=== PATIENT | male | born 1975 | race Caucasian/White ===

== ENCOUNTER 2024-09-23 20:28 | Emergency (ER) | payer SELFPAY ==
[2024-09-23 20:32] VITALS: BP 152/82; PULSE 68; RESP 17; TEMP 36.1; O2SAT 98
--- NOTE | 2024-09-23 23:32 | PC.NURSE ---
eye kit at bedside
[2024-09-23 23:34] VITALS: BP 123/84; O2SAT 96
[2024-09-23 23:48] VITALS: BP 123/84; PULSE 60; RESP 16; TEMP 36.6; O2SAT 95
[2024-09-24] VITALS (7 sets, daily range): BP systolic 117–118; BP diastolic 76; PULSE 76; RESP 16; TEMP 36.4; O2SAT 95–98
--- OUTSIDE RECORDS SUMMARY | 2024-09-24 00:58 | XMS_ITS | Encounter Summary ---
Author Name [facility] Organization [facility] [place] Address [address] [place] [address] Care Team Providers Care Elevator Constructor Hydraulic Name Role Phone WALTER EMILIO Primary Care Provider Unavailabl e SERGO VIRK Primary Care Provider Unavailabl e Insurance Providers: All historical and current Section Date Range: From patient's date of to the date document was created. This section includes the names of all active insurance providers for the patient. Insurance Provider Type of Coverage Plan Name Start of Policy Coverage End of Policy Coverage Group Number Member ID Insurance Provider's Telephone Number Policy [place]'s Name Patient's Relationship to Policy [place] [employer] RE DODA WNR Jan 14, 2024 DODA [id number] Julianna JAVED [facility] 2024 [facility] RETIR ED Jun 09, 2024 PRIME RETIRED [id number] [phone] Julianna JAVED [facility]IENT [facility] 2024 PRIME WNR Jun 09, 2024 PRIME [id number] [phone] Julianna JAVED PATIENT Selected Encounter This section includes the information on record at [place] for the Encounter. Date/Time Encounter Type Encounter Description Reason Provider Source Aug 04, 2024 07:30 AM OFFICE O/P EST LOW 20 MIN PODIATRY ICD-10-CM L60.3 Nail dystrophy JOSIAH GANNON IHKori Encounter Template Text not used by [place] Assessments - Encounter Diagnoses This section includes the primary and secondary diagnoses documented for the Encounter. Date/Time Primary/Secondary Diagnosis Diagnosis Name Provider Source Aug 04, 2024 09:11 PM PRIMARY Nail dystrophy JOSIAH GANNON [facility] Aug 04, 2024 09:11 PM SECONDARY Hallux rigidus, right foot JAGDEEPJOSIAH L [facility] Aug 04, 2024 09:11 PM SECONDARY Other acquired deformities of unspecified foot JAGDEEPJOSIAH L [facility] Aug 04, 2024 09:11 PM SECONDARY [facility] Plan of Treatment: Future Appointments (+ 6 months) and Future Tests (+/- 45 days) The Plan of Treatment section includes future care activities for the patient from all [place] treatmentfacilities. This section includes future appointments and future orders which are active, pending or scheduled. Future Appointments This section includes appointments that were scheduled to occur 6 months from the date of the Encounter, up to a maximum of 20 appointments. The data comes from all [place] treatment facilities. Appointment Date/Time Appointment Type Appointme nt Facility Name Sep 10, 2024 07:30 AM AMBULATORY [facility] NONE [facility] Sep 13, 2024 02:00 PM AMBULATORY - NONE [facility] Sep 17, 2024 07:30 AM AMBULATORY - NONE [facility] Sep 20, 2024 02:00 PM AMBULATORY - NONE [facility] Sep 24, 2024 07:30 AM [facility] Sep 27, 2024 02:00 PM [facility]ULAT[facility] Sep 27, 2024 03:00 PM AMBULATORY - SURGERY [facility] Oct 01, 2024 07:30 AM AM[facility]ULAT[facility] Oct 04, 2024 02:00 PM [facility]ULAT[facility] Nov 19, 2024 10:00 AM AM[facility]UL[facility]ORY - [facility] Dec 08, 2024 09:00 AM AMBULATORY - MEDICINE [facility] Advance Directives: All historical and current Section Date Range: From patient's date of to the date document was created. This section includes ALL of a patient's completed or amended [place] Advance and Rescinded Directives. The entries below indicate that a directive exists for the patient, but an actual copy is not included with this document. The data comes from all [place] facilities. Date Advance Directives Provider Source Dec 28, 2021 ADVANCE DIRECTIVE DISCUSSION PHYLLIS GUPTA [facility] Encounter Notes: All associated encounter notes This section contains the clinical notes associated to the Encounter. Date/Time Encounter Note(s) Provider Source Aug 04, 2024 05:40 AM PODIATRY NOTE: LOCAL TITLE: PODIATRY NOTE STANDARD TITLE: PODIATRY NOTE DATE OF NOTE: AUG 04, 2024@05:40 ENTRY DATE: AUG 04, 2024@05:40:56 AUTHOR: JOSIAH GANNON COSIGNER: URGENCY: STATUS: COMPLETED Last clinic visit on November 28, 2023. SUBJECTIVE: This 49 year old noninsulin dependent male patient presents for followup for complaints of sharp and aching pain to the right foot. localized to the plantar heel of the foot. The pt received the orthosis from [employer] as follows: Purchase Order Number: [id number] First Line Item: CUSTOM FUNCTIONAL INSERTS [id number] EA Vendor Name: [employer] Deliver To Location: The pt is pleased with the orthosis, The pt uses steel toe shoes at work. In addition the patient hit the hallux right to cause the toe nail to come off. Currently not an issue. The pt is not requesting footwear and orthosis this clinic visit. Pt last blood sugar was 80 mg/dl serum in November 2023 Pt states no numbness, tingling and/or burning sensation to the feet. Pt denies rest pain or claudication. Pt denies any recent injuries to the feet. Pt denies any history of ulceration or slow healing wounds. Pt relates no other foot complaints at this time. SOCIAL HISTORY: Pt denies smoking. Patient drinks alcohol: OCCASIONAL Patient uses recreational drugs: denies Family history of diabetes: denies PMH: Patient has answered NKA DS - Disabilities Eligibility: SERVICE CONNECTED 50% to 100% VERIFIED Total S/C %: 100 TINNITUS 10% S/C LIMITED MOTION OF ARM 20% S/C LIMITATION OF MOTION, INDEX OR LONG FINGER 10% S/C ANXIETY DISORDER 30% S/C LIMITED FLEXION OF KNEE 0% S/C 2ND DEGREE SQUIRES 0% S/C LIMITATION ON MOTION, RING OR LITTLE FINGER 0% S/C LIMITATION ON MOTION, RING OR LITTLE FINGER 0% S/C PARALYSIS OF MEDIAN NERVE 20% S/C FLAT FOOT CONDITION 50% S/C HIATAL HERNIA 10% S/C LUMBOSACRAL OR CERVICAL STRAIN 30% S/C LIMITATION OF MOTION, INDEX OR LONG FINGER 10% S/C LIMITATION ON MOTION, RING OR LITTLE FINGER 0% S/C LIMITED FLEXION OF KNEE 0% S/C SUPERFICIAL SCARS 10% S/C LIMITED MOTION OF ANKLE 10% S/C 2ND DEGREE SQUIRES 0% S/C LIMITATION ON MOTION, RING OR LITTLE FINGER 0% S/C LIMITED EXTENSION OF KNEE 10% S/C LIMITED EXTENSION OF KNEE 10% S/C NEUROGENIC BLADDER 40% S/C FOOT CONDITION 10% S/C LIMITATION OF MOTION, THUMB 10% S/C 2ND DEGREE SQUIRES 0% S/C LIMITATION OF MOTION, INDEX OR LONG FINGER 10% S/C 2ND DEGREE SQUIRES 0% S/C HEMORRHOIDS 0% S/C LIMITATION OF MOTION, INDEX OR LONG FINGER 10% S/C PARALYSIS OF MEDIAN NERVE 30% S/C SLEEP APNEA SYNDROMES 50% S/C TRAUMATIC BRAIN DISEASE 10% S/C ALLERGIC OR VASOMOTOR RHINITIS 0% S/C LIMITATION OF MOTION, THUMB 10% S/C LIMITED MOTION OF ARM 20% S/C LUMBOSACRAL OR CERVICAL STRAIN 20% S/C LIMITED MOTION OF ANKLE 10% S/C SINUSITIS,MAXILLARY,CHRONIC 0% S/C 68 in [172.7 cm] (11/19/2023 08:19) 189 lb [85.73 kg] (11/19/2023 08:19) 1) Hyperlipidemia 2) Obstructive sleep apnea 3) Anxiety 4) Gastroesophageal reflux disease 5) History of traumatic brain injury 6) Allergic rhinitis 7) Low back pain 8) Pes planus 9) Plantar fasciitis 10) Tinnitus 11) Exposure to potentially hazardous substance ([facility] [id number]) Active Outpatient Medications (including Supplies): Active Outpatient Medications Status 1) LORATADINE 10MG TAB TAKE ONE TABLET BY MOUTH ONCE A ACTIVE DAY FOR ALLERGIC RHINITIS ON EMPTY STOMACH 2) PANTOPRAZOLE NA 40MG EC TAB TAKE ONE TABLET BY MOUTH ACTIVE EVERY MORNING BEFORE A MEAL FOR GASTROESOPHAGEAL REFLUX DISEASE TAKE 30 MINUTES BEFORE MEAL(S) Objective: Pt presents ambulating in tennis sneakers every day footwear without assistance and oriented x 3. Last clinic visit on November 28, 2023 with few changes to the following objective findings from the last clinic visit. Vasc: DP and PT pulses are palpable 1/4 b/l. CFT < 4 seconds b/l. Hair growth is present on the digits, b/l feet. There is absent ankle edema present, b/l extremities. Neuro: Protective sensation is normal at all sites tested with Driver Yvonne 5.07 monofilament to both feet. Negative tinel to the posterior tibial nerve, b/l feet. Derm: neg varicosities dorsum of foot b/l. Nails are trimmed by patient. right hallux nail No evidence of infection, i.e. no erythema, no drainage, no edema, no cellulitis, no odor. Web spaces are clean and dry. There are no open lesions. No evidence of ulcerations or breaks in the skin. No evidence of infection, i.e., no erythema, no drainage, no edema, no cellulitis, no odor. Inflamed keratosis: 0 , right foot; and 0 , left foot. Ortho: 1st MPJ ROM diminished < 30 degrees, right foot There is pain and +++ crepitus noted to the joint to the right foot. Inversion and eversion ROM to the foot is within normal limits without pain or crepitus. Ankle joint ROM is diminished < 3 degrees, b/l. There is no pain with deep massage to anatomical structures to the left foot or the right foot. Manual muscle testing in all biomechanical planes, i.e. supination, pronation, dorsiflexion, plantarflexion, abduction and adduction, are normal, i.e. 5/5, b/l feet. pes cavus, b/l feet hallux limitus, right foot ++++++++++++++++++++++++++ ankle equinus, b/l feet Mild hammer toes: 2-5, b/l feet Stance/gait: with pronation ASSESSMENT: right foot pain right plantar fasciitis, right foot pes cavus, b/l feet hallux limitus, right foot ++++++++++++++++++++++++++ ankle equinus, b/l feet Mild hammer toes: 2-5, b/l feet Stance/gait: with pronation nail dystrophy, right hallux PLAN: Exam FOOT RISK SCORE: low foot risk per the A directive 1122 x-rays of the left foot, right foot, taken on November 21, 2023 radiologist comments: refer to the film reports fof details Discussed in detail -- footwear and afunction orthosis; If the right hallux limitus is painful and the pt chooses to use a cam boot, the pt was encouraged to call this doctor and one will be ordered. Used foot/ankle models to assist in explanation. The pt agreed with the plan and voiced understanding with the discussion and plan. Discussed diabetic foot care in general. Pt relates verbal understanding. Pt encouraged to check feet daily. Pt given clinic phone numbers. PROSTHETICS: none this visit Pt understands that pt can contact the clinic if there are concerns or questions and the pt needs to see Podiatry sooner, through the HAS pensionholder information clerk/office. Pt visits PCP annually. Pt to call the clinic in 2 months with verbal update. Patient instructed to go to [facility], or contact their PCP with new pedal complaints, and if there are concerns or questions. Example includes infection. The pt voiced understanding of infection such as red, hot, swollen and streaking foot that may be accompanied with or without f/c/n/v/d/m/chest pain/sob/leg pain. /rita/ Kamilah RIZOP.Charles. Staff Physician - Podiatry Signed: 08/08/2024 19:22 JOSIAH GANNON [facility]
--- OUTSIDE RECORDS SUMMARY | 2024-09-24 00:58 | XMS_ITS | Encounter Summary ---
Author Name [facility] ([place]) Organization [facility] [place]) Address [address] [place] [address] Care Team Providers Care Hr Recruiter Name Role Phone WALTER EMILIO Primary Care Provider Unavailjanell e SERGO VIRK Primary Care Provider Unavailabl nirmala Insurance Providers: All historical and current Section [...] RE DODA WNR Jan 14, 2024 DODA [id number] [phone] Julianna JAVED [facility]IENT [facility] 2024 PRIME RETIR ED Jun 09, 2024 PRIME RETIRED [id number] [phone] Julianna JAVED [facility]IENT [facility] 2024 PRIME WNR Jun 09, 2024 PRIME [id number] [phone] Julianna JAVED PATIENT Selected Encounter This section includes the information on record at [place] for the Encounter. Date/Time Encounter Type Encounter Description Reason Provider Source Jul 05, 2024 09:00 AM MANUAL THERAPY 1/> [employer] ICD-10-CM M54.50 Low back pain, unspecified MARCELLA LIND [facility] Encounter Template Text not used by [place] Assessments - Encounter Diagnoses This section includes the primary and secondary diagnoses documented for the Encounter. Date/Time Primary/Secondary Diagnosis Diagnosis Name Provider Source Jul 05, 2024 09:32 AM PRIMARY Low back pain, unspecified TERRANCE LIND Miguelina [facility] Jul 05, 2024 09:32 AM SECONDARY Cervicalgia TERRANCE LIND [facility] Jul 05, 2024 09:32 AM SECONDARY Myalgia, other site TERRANCE LIND [facility] Plan of Treatment: Future Appointments (+ 6 months) and Future Tests (+/- 45 days) The Plan of Treatment section includes future care activities for the patient [facility] [place] [facility] This section includes future appointments and future orders which are active, pending or scheduled. Future Appointments This section includes appointments that were scheduled to occur 6 months from the date of the Encounter, up to a maximum of 20 appointments. The data comes from all [place] treatment facilities. Appointment Date/Time Appointment Type Appointme nt Facility Name Jul 12, 2024 06:30 PM AMBULATORY [facility] NONE [facility] Jul 16, 2024 07:30 AM AMBULATORY [facility] Jul 23, 2024 07:30 AM AMBULATORY [facility] N[facility] Jul 30, 2024 07:30 AM AMBULATORY [facility] Aug 04, 2024 07:30 AM AMBULATORY - SURGERY [facility] Sep 10, 2024 07:30 AM AMBULATORY [facility] Sep 13, 2024 02:00 PM AMBULATORY - NONE [facility] Sep 17, 2024 07:30 AM AMBULATORY [facility]ONE [facility] Sep 20, 2024 02:00 PM AMBULATORY - NONE [facility] Sep 24, 2024 07:30 AM AM[facility]ULATORY [facility] Sep 27, 2024 02:00 PM AM[facility]ULATORY [facility] Sep 27, 2024 03:00 PM AMBULATORY - SURGERY [facility] Oct 01, 2024 07:30 AM AMBULATORY - NONE [facility] Oct 04, 2024 02:00 PM AMBULATORY - NONE [facility] Nov 19, 2024 10:00 AM AMBULATORY - MEDICINE [facility] Dec 08, 2024 09:00 AM AMBULATORY - MEDICINE [facility] Social History: Smoking Status (Most current) and Tobacco Use (All prior to encounter date) This section includes the most current, and the historical, smoking and tobacco- related health factors from the [place] facility where the Encounter took place. Current Smoking Status This section includes the most current smoking, or tobacco-related health factor, from the [place] facility where the Encounter took place. Date/Time Current Smoking Status Comment Facil ity Nov 19, 2023 08:30 AM VA-TOBACCO NEVER USED [facility] Advance Directives: All historical and current Section Date Range: From patient's date of to the date document was created. This section includes ALL of a patient's completed or amended [place] Advance and Rescinded Directives. The entries below indicate that a directive exists for the patient, but an actual copy is not included with this document. The data comes from all [place] facilities. Date Advance Directives Provider Source Dec 28, 2021 ADVANCE DIRECTIVE DISCUSSION PHYLLIS GUPTA [facility] Encounter Notes: All associated encounter notes This section contains the clinical notes associated to the Encounter. Date/Time Encounter Note(s) Provider Source Jul 05, 2024 08:21 AM CHIROPRACTIC NOTE: LOCAL TITLE: CHIROPRACTIC [facility] STANDARD TITLE: CHIROPRACTIC NOTE DATE OF NOTE: JUL 05, 2024@08:21 ENTRY DATE: JUL 05, 2024@08:21:18 AUTHOR: TERRANCE LIND COSIGNER: URGENCY: STATUS: COMPLETED SUBJECTIVE: Bong presents today for a follow up visit of neck and back pain. he notes over the past week experiencing discomfort along CT junction, has been trying to be more mindful of posture, stretching and heat which feels good but does not make pain go away. He denies UE radicular symptoms. he notes lately low back has been doing pretty good. He has been working with [employer] which has been going pretty good so far. Denies any recent slips falls or injuries. Today rates pain complaint as 2/10. Received TENS unit, has used on occasion. GOALS: Improve mobility, decrease pain when transitioning from flexion to neutral spine. REFERRAL DATE: 11/19/2023 EXAM DATE(S): 12/26/23 09:00 INITIAL TREATMENT DATE: 12/26/23 09:00 TYPE OF CARE: active DISCHARGE DATE: 07/05/2024 ALERTS: EXAMINATION APPEARANCE, MOOD & ORIENTATION The patient is a 49 year old WHITE NOT OR MALE, who is alert and oriented to person, place, and time. The patient is in no apparent distress and is well developed and well nourished. Patient walks with no difficulty. OBJECTIVE/PALPATION: Taut and tender cervical and thoracolumbar paraspinal muscles RESTRICTIONS: Cervical, thoracic, lumbar and SIJ ASSESSMENT: Patient is a pleasant 49-year-old male with nonspecific mechanical neck and back pain likely with postural component. Patient likely to benefit with inclusion of conservative management in addition to self-care/self-management strategies. On examination no evidence of neurological compromise, deep tendon reflexes dermatomes and myotomes intact bilaterally without deficit. PLAN: Plan of care will consist of 4-6 visits consisting of chiropractic manipulation with an incremental increase in home exercise depending on the patients response. The patient agrees to this plan. Treatment consisted of prone manipulation CT junction, supine manipulation thoracic spine, manipulation, side-lying manipulation lumbar spine and SIJ. flexion distraction. Manual therapy consisting of cross friction massage of the rhomboids, upper trapezius, cervical/thoracolumbar paraspinals, quadratus lumborum and levator scapula muscles. Table assisted pin and stretch thoracolumbar paraspinals. Manual therapy 9 minutes. The patient reported feeling much better following their treatment. Treatment rendered without incident. HOME CARE: Kneeling thoracic mobility 5 reps 3-4 times daily, cervical retractions 5 reps 3-4 times daily RTC:Discharged this date. Patient was informed that may to return to clinic with a consult in 6 months if desired or symptoms return. /rita/ TERRANCE LIND [facility] Chiropractic Physician Signed: 07/05/2024 09:32 TERRANCE LIND [facility]
--- OUTSIDE RECORDS SUMMARY | 2024-09-24 00:58 | XMS_ITS | Encounter Summary ---
Author Name [facility] Organization [facility] Address [address] [place] [address] Care Team Providers Care Automatic Seamer Name Role Phone WALTER EMILIO Primary Care [...] RE DODA WNR Jan 14, 2024 DODA [id number] Julianna JAVED PATIENT [facility] 2024 [facility] RETIR ED Jun 09, 2024 [facility] RETIRED [id number] [phone] Julianna JAVED PATIENT [facility] 2024 [facility] WNR Jun 09, 2024 PRIME [id number] [phone] Julianna JAVED PATIENT Selected Encounter This section includes the information on record at [place] for the Encounter. 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 Date/Time Primary/Secondary Diagnosis Diagnosis Name Provider Source Dec 26, 2023 11:17 AM PRIMARY Low back pain, unspecified RAUL LIND [facility] Dec 26, 2023 11:17 AM SECONDARY Cervicalgia RAUL LIND [facility] Dec 26, 2023 11:17 AM SECONDARY Myalgia, other site RAUL LIND [facility] Plan of Treatment: Future Appointments (+ 6 months) and Future Tests (+/- 45 days) The Plan of Treatment section includes future care activities for the patient from all [place] treatmentfacilities. This section includes future appointments and future orders which are active, pending or scheduled. Future Appointments This section includes appointments that were scheduled to occur 6 months from the date of the Encounter, up to a maximum of 20 appointments. The data comes from all [place] treatment facilities. Appointment Date/Time Appointment Type Appointme nt Facility Name Dec 29, 2023 04:00 PM AM[facility]ULATORY [facility] NONE [facility] Jan 12, 2024 03:00 PM AMBULATORY [facility] NONE [facility] Jan 20, 2024 11:20 AM AMBULATORY - NONE [facility] Feb 19, 2024 11:20 AM AMBULATORY - NONE [facility] Mar 01, 2024 10:30 AM AMBULATORY - MED[facility] Mar 11, 2024 11:00 AM AMBULATORY - NONE [facility] Apr 13, 2024 11:20 AM AMBULATORY - NONE [facility] May 11, 2024 11:40 AM AMBULATORY - N[facility] May 25, 2024 08:00 AM AMBULATORY - NONE [facility] Jun 03, 2024 01:30 PM AM[facility]ULATORY [facility] Jun 14, 2024 06:30 PM [facility]AT[facility] Jun 21, 2024 06:30 PM [facility]ATORY [facility] Advance Directives: All historical and current Section Date Range: From patient's date of to the date document was created. This section includes ALL of a patient's completed or amended [place] Advance and Rescinded Directives. The entries below indicate that a directive exists for the patient, but an actual copy is not included with this document. The data comes from all [place] facilities. Date Advance Directives Provider Source Dec 28, 2021 ADVANCE DIRECTIVE DISCUSSION ALONSOPHYLLIS Sheikh [facility] Encounter Notes: All associated encounter notes This section contains the clinical notes associated to the Encounter. Date/Time Encounter Note(s) Provider Source Dec 26, 2023 07:45 AM CONSULT: LOCAL TITLE: CHIROPRACTIC [facility] CONSULT [facility] STANDARD TITLE: CONSULT DATE OF NOTE: DEC 26, 2023@07:45 ENTRY DATE: DEC 26, 2023@07:45:32 AUTHOR: TERRANCE LIND COSIGNER: URGENCY: STATUS: COMPLETED REQUESTING PROVIDER: SERGO VIRK Thank you for your referral, as you know this is a 48 year old WHITE NOT OR MALE presenting to the Chiropractic clinic on 12/26/23 09:00 with a chief complaint of low back pain, during appointment patient also notes history of neck pain. COMPLAINT: Patient presents today for an evaluation of low back pain. Onset of back pain starting about 4 years ago, denies trauma, relates onset to age. He notes back pain comes and goes, depending on what he is doing. He constantly feel like he needs to extend his back. he notes bending forward is aggravating also aggravated by coming up from flexed position. He denies radicular symptoms. He describes as feeling like he gets locked into a flexed position, and will need to lay down on the floor, will push on his back. He notes taking ibuprofen about 4 days/wk about 800 mg/daily. Unable to identify time of day. Today rates back pain as a 2/10, which is typical, when flared up can get to 4/10. Has been getting massages for past 4-5 yrs. predominately for upper back, also does aided stretches during massages, about once/month. He describes upper back pain along CT region, starting about 4 years ago, insidious onset. he notes about 4 yrs. go returning from [place] and notes having to wear body armor for extended periods of time. He notes difficulty turning head, more difficult turning to left, with pain along L upper traps. 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 He reports previous nerve test and completed PT. He describes neck complaint as feeling stiff, today rates complaint as 1-2/10. He notes history of plantar fasciitis predominately in the right heel. He notes recently completed physical therapy. 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 Riding mountain bike, has not done as much lately, will occasionally use trails. 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: - TOBACCO: Previous, quit 1999 ETOH: Occasionally 1-2 drinks/wk ILLICITS: Denies Service Connected: Yes (100%) DS - Disabilities Eligibility: SERVICE CONNECTED 50% to 100% VERIFIED Total S/C %: 100 LIMITATION ON MOTION, RING OR LITTLE FINGER 0% S/C SINUSITIS,MAXILLARY,CHRON IC 0% S/C 2ND DEGREE SQUIRES 0% S/C LIMITATION ON MOTION, RING OR LITTLE FINGER 0% S/C HIATAL HERNIA 10% S/C PARALYSIS OF MEDIAN NERVE 20% S/C TINNITUS 10% S/C FLAT FOOT CONDITION 50% S/C LIMITED MOTION OF ARM 20% S/C ANXIETY DISORDER 30% S/C LIMITATION OF MOTION, INDEX OR LONG FINGER 10% S/C LIMITED MOTION OF ANKLE 10% S/C SUPERFICIAL SCARS 10% S/C LIMITATION ON MOTION, RING OR LITTLE FINGER 0% S/C 2ND DEGREE SQUIRES 0% S/C LIMITATION OF MOTION, INDEX OR LONG FINGER 10% S/C LUMBOSACRAL OR CERVICAL STRAIN 30% S/C LIMITED FLEXION OF KNEE 0% S/C LIMITATION ON MOTION, RING OR LITTLE FINGER 0% S/C LIMITATION OF MOTION, THUMB 10% S/C ALLERGIC OR VASOMOTOR RHINITIS 0% S/C LIMITATION OF MOTION, INDEX OR LONG FINGER 10% S/C LIMITATION OF MOTION, INDEX OR LONG FINGER 10% S/C 2ND DEGREE SQUIRES 0% S/C 2ND DEGREE SQUIRES 0% S/C LIMITED EXTENSION OF KNEE 10% S/C HEMORRHOIDS 0% S/C LIMITED EXTENSION OF KNEE 10% S/C FOOT CONDITION 10% S/C NEUROGENIC BLADDER 40% S/C LIMITATION OF MOTION, THUMB 10% S/C LIMITED FLEXION OF KNEE 0% S/C LUMBOSACRAL OR CERVICAL STRAIN 20% S/C LIMITED MOTION OF ARM 20% S/C PARALYSIS OF MEDIAN NERVE 30% S/C LIMITED MOTION OF ANKLE 10% S/C TRAUMATIC BRAIN DISEASE 10% S/C SLEEP APNEA SYNDROMES 50% S/C CAN score: 0 GOALS: Improve mobility, decrease pain when transitioning from flexion to neutral spine. REFERRAL DATE: 11/19/2023 EXAM DATE(S): 12/26/23 09:00 INITIAL TREATMENT DATE: 12/26/23 09:00 TYPE OF CARE: active DISCHARGE DATE: ALERTS: EXAMINATION APPEARANCE, MOOD & ORIENTATION The patient is a 48 year old WHITE NOT OR MALE, who is alert and oriented to person, place, and time. The patient is in no apparent distress and is well developed and well nourished. Patient walks with no difficulty OBJECTIVE/PALPATION: Taut and tender rhomboids, upper traps and levator scapula. Taut and tender lumbar paraspinals and quadratus lumborum. RESTRICTIONS: CT junction, thoracic, lumbar, SIJ CERVICAL RANGE OF MOTION: Ranges of motion in flexion, extension, lateral flexion, and rotation were all in normal range without pain except: Mild restriction with bilateral rotation, patient repositioned in better posture notes significant improvement in cervical range of motion. THORACOLUMBAR RANGE OF MOTION : Ranges of motion in flexion, extension, lateral flexion, and rotation were all in normal range without pain except: Flexion with hands to distal marquis with pulling in low back and hamstrings, extension felt like a nice stretch, all other ranges of motion patient endorses stiffness. SENSORY Light touch: Bilateral upper/lower extremities intact without deficit. MOTOR (Graded 0-5) All 5/5 bilaterally except : L R Deltoids (C5) Biceps (C6) Wrist Extension (C6) Triceps (C7) Finger Extension (C7) Finger Flexion (C8) Finger Adduction (T1) Hip Flexion - Iliopsoas (L1,2,3) Leg Extension - Quadriceps (L2,3,4) Hip Adduction (L2,3,4) Tibialis Anterior (L4) Extensor Hallucis Longus (L5) Peroneus Longus and Brevis (S1) REFLEXES - Deep Tendon All 2+ bilaterally except (Graded 0-4) L R Biceps (C5) Triceps (C7) Brachioradialis (C6) Patellar (L4) Achilles (S1) ORTHOPEDIC All tests negative except as indicated: L R Location of Pain Foraminal Compression Max Foraminal Compression Tristian's Compression Distraction Comments Gait Toe Walk (S1,S2) Heel Walk (L4,L5) Ash's Sign Comments: Able to stand on their heels and on their toes without difficulty L R Location of Pain Kemps Standing Bechterew's * * Hamstring stretch Tripod Sign SLR 60 60 hamstring stretch Justin VALENTIN * R Lateral hip Suni's Hibb's Nachlas Mary Kate's [place]'s Additional Tests: Additional Comments: DIAGNOSTIC IMAGING == == ASSESSMENT: Patient is a pleasant 48-year-old male with nonspecific mechanical neck and back pain likely with postural component. Patient likely to benefit with inclusion of conservative management in addition to self-care/self-management strategies. On examination no evidence of neurological compromise, deep tendon reflexes dermatomes and myotomes intact bilaterally without deficit. PLAN: The patient was given a review of findings following the exam. The benefits, risks and alternatives to animal care provider were discussed with the patient, along with an opportunity to ask questions. Patient then gave an informed consent to treatment. Plan of care will consist of 4-6 visits consisting of chiropractic manipulation with an incremental increase in home exercise depending on the patients response. The patient agrees to this plan. Treatment consisted of flexion distraction lumbar spine, prone manipulation CT junction, supine manipulation thoracic spine, side-lying manipulation lumbar and SIJ. Manual therapy consisting of table assisted pin and stretch thoracolumbar paraspinals and quadratus lumborum. Cross friction massage rhomboids, upper traps and levator scapula. Prone vibratory massage thoracolumbar paraspinals, rhomboids. Manual therapy 10 minutes. Patient was instructed in cervical retractions, kneeling thoracic mobility Therapeutic exercise 5 minutes. The patient reported feeling much better following their treatment. Treatment rendered without incident. Patient reports reduction in stiffness, also describes feeling like he is able to sit up taller. Outpatient consultation consisting of chart review, history, examination, education and documentation 43 minutes. HOME CARE: Kneeling thoracic mobility 5 reps 3-4 times daily, cervical retractions 5 reps 3-4 times daily RTC: 3 to 4 weeks at [place] /rita/ TERRANCE LIND [facility] Chiropractic Physician Signed: 12/26/2023 11:19 TERRANCE LIND [facility]
--- OUTSIDE RECORDS SUMMARY | 2024-09-24 00:58 | XMS_ITS | Encounter Summary ---
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 Date/Time Encounter Type Encounter Description Reason Provider Source Dec 09, 2023 10:15 AM OFFICE O/P EST LOW 20 MIN DERMATOLOGY ICD-10-CM D18.01 Hemangioma of skin and subcutaneous tissue KAY AN IHE Encounter Template Text not used by [facility] Assessments - Encounter Diagnoses This section includes the primary and secondary diagnoses documented for the Encounter. Date/Time Primary/Secondary Diagnosis Diagnosis Name Provider Source Dec 09, 2023 10:34 AM PRIMARY Hemangioma of skin and subcutaneous tissue [facility] Dec 09, 2023 10:34 AM SECONDARY Melanocytic nevi, unspecified [facility]REA,[facility] Dec 09, 2023 10:34 AM SECONDARY Other melanin hyperpigmentation [facility] Dec 09, 2023 10:34 AM SECONDARY Other seborrheic keratosis [facility] Dec 09, 2023 10:34 AM SECONDARY 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ed follicular disorders [facility] Plan of Treatment: Future Appointments (+ 6 months) and Future Tests (+/- 45 days) The Plan of Treatment section includes future care activities for the patient from all [place] treatmentfacilities. This section includes future appointments and future orders which are active, pending or scheduled. Future Appointments This section includes appointments that were scheduled to occur 6 months from the date of the Encounter, up to a maximum of 20 appointments. The data comes from all [place] treatment facilities. Appointment Date/Time Appointment Type Appointme nt Facility Name Dec 26, 2023 09:00 AM AM[facility]ULATORY - NONE [facility] Dec 29, 2023 04:00 PM AMBULATORY - NONE [facility] Jan 12, 2024 03:00 PM AMBULATORY [facility] NONE [facility] Jan 20, 2024 11:20 AM AMBULATORY - NONE [facility] Feb 19, 2024 11:20 AM AMBULATORY - NONE [facility] Mar 01, 2024 10:30 AM AMBULATORY - MEDICINE [facility] Mar 11, 2024 11:00 AM AMBULATORY - NONE [facility] Apr 13, 2024 11:20 AM AMBULATORY - NONE [facility] May 11, 2024 11:40 AM AMBULATORY - NONE [facility] May 25, 2024 08:00 AM AMBULATORY - NONE [facility] Jun 03, 2024 01:30 PM AMBULATORY - NONE [facility] Lab Results: +/- 30 days of the encounter This section includes the Chemistry and Hematology Lab Results on record with [place] for the patient. Radiology Reports and Pathology Reports are provided separately, in subsequent sections. Lab Results This section contains the Chemistry/Hematology Results that were resulted 30 days before or 30 daysafter the date of the Encounter. Date/Time Source Result Type Result - Unit Interpretation Reference Range Specimen Type Comment Nov 19, 2023 09:41 AM [facility] HIV COMBO FOURTH GENERATION (STL) SERUM Speci men Type: SERUM No comment entered. Ordering Provider: SERGO VIRK Report Released Date/Time: Nov 19, 2023 09:14 AM Reporting Lab: [facility] [address] [place] [phone] Performing Lab: [address] [address] HIV COMBO FOURTH GENERATION (STL) Nonreactive Nonreactive Nov 19, 2023 09:41 AM [facility] HEP C Ab HCV Ab (STL) SERUM Specimen Type: SE RUM No comment entered. Ordering Provider: SERGO VIRK Report Released Date/Time: Nov 19, 2023 09:14 AM Reporting Lab: [facility] [address] [place] [phone] Performing Lab: [facility] [address] [place] [phone] HEP C Ab HCV Ab (STL) Nonreactive Nonrea ctive Nov 19, 2023 09:41 AM [facility] CBC BLOOD Specimen Type: BLOOD No comment entered. Ordering Provider: SERGO VIRK Report Released Date/Time: Nov 19, 2023 09:14 AM Reporting Lab: [facility] [address] [facility] [address] Performing Lab: [facility] [address] [place] [phone] WBC 4.6 10*3/uL 3.6-11.2 RBC 4.65 10*6/uL 4.10-5.70 HGB 14.3 g/dL 13.1-16.8 HCT 42.8 38.2-48.4 MCV 92.0 fL 80.0-100.0 MCH 30.8 pg 27.0-34.0 MCHC 33.4 g/dL 33.0-36.0 PLT 314 10*3/uL 150-400 MPV 10.4 fL 7.5-11.2 RDW 12.3 11.8-15.1 LYMPHOCYTES, AUTO % 30 MONOCYTES, AUTO % 12 NEUTROPHILS, AUTO % 55 EOSINOPHILS, AUTO % 2 BASOPHILS, AUTO % 1 LYMPHOCYTES, ABSOLUTE 1.38 10*3/uL 0.77- 4.50 MONOCYTES, ABSOLUTE 0.55 10*3/uL 0.19-0. 80 NEUTROPHILS, ABSOLUTE 2.50 10*3/uL 2.10- 8.00 EOSINOPHILS, ABSOLUTE 0.07 10*3/uL 0.00- 0.60 BASOPHILS, ABSOLUTE 0.04 10*3/uL 0.00-0. 20 Nov 19, 2023 09:41 AM [facility] COMPREHENSIVE METABOLIC PANEL PLASMA Specimen Type: PLASMA Comment: No hemolysis noted. Ordering Provider: SERGO VIRK Report Released Date/Time: Nov 19, 2023 09:14 AM Reporting Lab: [facility] [address] [facility] [place] [address] Performing Lab: [facility] [address] [place] [phone] CREATININE 1.22 mg/dL 0.7-1.3 UREA NITROGEN 13.1 mg/dL 9.0-25.0 GLUCOSE 80 mg/dL 72-99 SODIUM 139 meq/L 136-145 POTASSIUM 4.4 meq/L 3.5-5 CHLORIDE 106 meq/L 98-107 CARBON DIOXIDE 25 meq/L 22-31 CALCIUM 9.5 mg/dL 8.4-10.4 PROTEIN 7.2 g/dL 6-8.6 ALBUMIN 4.4 g/dL 3.4-5 TOTAL BILIRUBIN 1.2 mg/dL 0.2-1.2 ALKALINE PHOSPHATASE 75 U/L 40-150 AST/SGOT 27 U/L 5-34 ALT/SGPT 22 U/L 8-40 EGFR (CKD-EPI 2020) 73.6 >60 Nov 19, 2023 09:41 AM [facility] HGA1C BLOOD Specimen Type: BLOOD No comment entered. Ordering Provider: VIRK,SERGO R Report Released Date/Time: Nov 19, 2023 09:14 AM Reporting Lab: [address] [phone] Performing Lab: [address] [phone] HGA1C 5.6 4.0-6.0 Nov 19, 2023 09:41 AM [facility] LIPID PANEL (STL) PLASMA Specimen Type: PLASM A Comment: No hemolysis noted. Ordering Provider: SERGO VIRK Report Released Date/Time: Nov 19, 2023 09:14 AM Reporting Lab: [address] [phone] Performing Lab: [address] [phone] CHOLESTEROL 184 mg/dL 0-200 TRIGLYCERIDE 103 mg/dL 0-150 CALCULATED LDL 117 mg/dL HDL(New) 46 mg/dL >40 Nov 19, 2023 09:41 AM [facility] VITAMIN D, 25-HYDROXY SERUM Specimen Type: SE RUM No comment entered. Ordering Provider: SERGO VIRK Report Released Date/Time: Nov 19, 2023 09:14 AM Reporting Lab: [address] [address] Performing Lab: [address] [address] VITAMIN D, 25-HYDROXY 28.7 ng/mL L 30-96 Nov 19, 2023 09:41 AM [facility] TSH (MA-PB) SERUM Specimen Type: SERUM No comment entered. Ordering Provider: SERGO VIRK Report Released Date/Time: Nov 19, 2023 09:14 AM Reporting Lab: [address] [phone] Performing Lab: [address] [address] TSH 0.730 u[IU]/mL 0.47-5 Advance Directives: All historical and current Section Date Range: From patient's date of to the date document was created. This section includes ALL of a patient's completed or amended [place] Advance and Rescinded Directives. The entries below indicate that a directive exists for the patient, but an actual copy is not included with this document. The data comes from all [place] facilities. Date Advance Directives Provider Source Dec 28, 2021 ADVANCE DIRECTIVE DISCUSSION PHYLLIS GUPTA [facility] Radiology Reports: +/- 30 days of the encounter Radiology Reports For cases when an order for radiology services may have been completed prior to the date of the Encounter, the report list includes the Radiology Reports that were completed up to 30 days before dateof the Encounter. For cases when an order for radiology services may have been completed after the date of the Encounter, the report list also includes the Radiology Reports that were completed up to30 days after date of the Encounter. The data comes from all [place] treatment facilities. Date/Time Radiology Report Provider Source Nov 21, 2023 02:25 PM FOOT,RIGHT,3 VIEWS OR MORE: KALEB JAVED [id number] -1975 M Ex Date: NOV 21, 2023@14:25 Req Phys: SERGO VIRK Loc: -[facility] PACT 3 NEW PATIENT ( Img Loc: -MAIN RADIOLOGY SUITE Service: [facility], [facility] [address] [place] [address] (Case [id number] COMPLETE) FOOT,RIGHT,3 VIEWS OR MORE (RAD Detailed) CPT:77186 Proc Modifiers : RIGHT Reason for Study: Foot pain Clinical History: Report Status: Verified Date Reported: NOV 21, 2023 Date Verified: NOV 21, 2023 Press Secretary E-Sig:/ES/ALEX RAMOS Report: , [id number] INDICATION: Foot pain COMPARISON: None TECHNIQUE: Right and left foot multiple views Impression: There are bilateral plantar heel spurrings. 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 No acute displaced fracture. No significant malalignment. Primary Interpreting Staff: ALEX RAMOS, RADIOLOGIST (Press Secretary) /ALEX LOPEZ [facility] Nov 21, 2023 02:25 PM FOOT,LEFT 3 VIEWS OR MORE: KALEB JAVED [id number] -1975 M Exm Date: NOV 21, 2023@14:25 Req Phys: VIRKSHANSERGOALICE Barnett Loc: -[facility] PACT 3 NEW PATIENT ( Img Loc: [facility]-MAIN RADIOLOGY SUITE Service: Unknown [facility], [facility] [address] [place] [address] (Case [id number] COMPLETE) FOOT,LEFT 3 VIEWS OR MORE (RAD Detailed) CPT:27381 Proc Modifiers : LEFT Reason for Study: Foot pain Clinical History: Report Status: Verified Date Reported: NOV 21, 2023 Date Verified: NOV 21, 2023 Press Secretary E-Sig:/ES/ALEX RAMOS Report: , [id number] INDICATION: Foot pain COMPARISON: None TECHNIQUE: Right and left foot multiple views Impression: There are bilateral plantar heel spurrings. 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 No acute displaced fracture. No significant malalignment. Primary Interpreting Staff: ALEX RAMOS, RADIOLOGIST (Press Secretary) /ALEX LOPEZ [facility] Encounter Notes: All associated encounter notes This section contains the clinical notes associated to the Encounter. Date/Time Encounter Note(s) Provider Source Dec 09, 2023 10:24 AM DERMATOLOGY CONSUL T: LOCAL TITLE: DERMATOLOGY CONSULT ST STANDARD TITLE: DERMATOLOGY CONSULT DATE OF NOTE: DEC 09, 2023@10:24 ENTRY DATE: DEC 09, 2023@10:24:22 AUTHOR: DAVON CORREA EXP COSIGNER: KAY AN URGENCY: STATUS: COMPLETED DERMATOLOGY CONSULT ST Has ADDENDA [facility] CONSULT NOTE KALEB JAVED is a 48yo WHITE MALE Presenting for: #Pre-cancer spots hx: -Located to ear, nose head s/p removal in approx. 2021. -Patients father has hx of skin cancer. 1 brother: Hx of skin cancer. -Patients -Patient requesting [place] dermatology consult. History of skin cancer: none Other derm history: AKs Today, patient notes the following concerns: 1. Notes lesion in [place] line and on R shoulder, asymptomatic. 2. Would like baseline skin exam given recent skin cancers in father, brother. Allergies: Patient has answered NKA ROS: no fever or chills, no recent unintended weight change, no non-healing sores PE: - Scattered mack waxy ekhne-vl-splcnfhsd papules on trunk and extremities - Scattered regan-red dome-shaped papules on trunk and extremities - Scattered homogenous mack/brown macules on trunk and extremities - Few yellow-skin colored papules with central dell on forehead, R cheek General Appearance: Well-appearing MALE, NAD Face: WNL Ears:WNL Scalp, Hair: WNL Neck: WNL Chest: WNL Abd: WNL Back: WNL Upper Extremities: WNL Lower Extremities: WNL A/P: #Seborrheic keratoses #Regan angiomas #Sebaceous hyperplasia - Benign, reassurance provided - No treatment indicated #Multiple melanocytic nevi #Lentigines - Benign, reassurance provided - Reviewed sun protection strategies and skin cancer warning signs - Sun protection education: Educated on the use of solar protection, including sunscreen use, the importance of periodic self-evaluation, the ABCDEs of melanoma, and the warning signs of squamous cell carcinoma and basal cell carcinoma. Suggested the use of SPF 30 or greater broad spectrum sunscreen, applied 15 minutes prior to going out in the sun, and reapplied every 2 hours. Return to clinic 1-2 years for FBSE Davon Correa MD PGY3 Dermatology Resident /rita/ Davon Correa MD Dermatology Resident Signed: 12/09/2023 10:34 /rita/ KAY AN MD Dermatology Attending Physician Cosigned: 12/09/2023 10:43 12/09/2023 ADDENDUM STATUS: COMPLETED Reviewed documented history and physical examination and agree with assessment and plan. I was immediately available during entire visit and procedures. /rita/ KAY AN MD Dermatology Attending Physician Signed: 12/09/2023 10:[address] [facility]
--- OUTSIDE RECORDS SUMMARY | 2024-09-24 00:58 | XMS_ITS | Encounter Summary ---
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 Date/Time Primary/Secondary Diagnosis Diagnosis Name Provider Source May 25, 2024 10:39 AM PRIMARY Low back pain, unspecified TERRANCE LIND [facility] May 25, 2024 10:39 AM SECONDARY Cervicalgia TERRANCE LIND [facility] May 25, 2024 10:39 AM SECONDARY Myalgia, other site TERRANCE LIND [facility] Plan of Treatment: Future Appointments (+ 6 months) and Future Tests (+/- 45 days) The Plan of Treatment section includes future care activities for the [facility] This section includes future appointments and future orders which are active, pending or scheduled. Future Appointments This section includes appointments that were scheduled to occur 6 months from the date of the Encounter, up to a maximum of 20 appointments. The data comes from all [place] treatment facilities. Appointment Date/Time Appointment Type Appointme nt Facility Name Jun 03, 2024 01:30 PM AMBULATORY - NONE [facility] [place] [facility] Jun 14, 2024 06:30 PM AMBULATORY - NONE [facility] Jun 21, 2024 06:30 PM AMBULATORY - NONE [facility] Jul 05, 2024 09:00 AM AMBULATORY - NONE [facility] L[facility] Oliveros [facility] Jul 05, 2024 06:30 PM AMBULATORY - NONE [facility] Jul 12, 2024 06:30 PM AMBULATORY - N[facility] [place] [facility] Jul 16, 2024 07:30 AM AMBULATORY [facility] [place] [facility] Jul 23, 2024 07:30 AM AMBULATORY [facility] [place] [facility] Jul 30, 2024 07:30 AM AMBULATORY [facility] [place] [facility] Aug 04, 2024 07:30 AM AMBULATORY - SURGERY [facility] Jose Daniel MCDOWELLJENNIFFER [facility] Sep 10, 2024 07:30 AM AMBULATORY - NONE [facility] Sep 13, 2024 02:00 PM AMBULATORY - NONE [facility] [place] [facility] Sep 17, 2024 07:30 AM AMBULATORY - NONE [facility] Sep 20, 2024 02:00 PM AMBULATORY - NONE [facility] Sep 24, 2024 07:30 AM AMBULATORY - NONE [facility] Sep 27, 2024 02:00 PM AMBULATORY - NONE [facility] Sep 27, 2024 03:00 PM AMBULATORY - SURGERY [facility] Jose Daniel [facility] Oct 01, 2024 07:30 AM AMBULATORY - NONE [facility] Oct 04, 2024 02:00 PM AMBULATORY - NONE [facility] Nov 19, 2024 10:00 AM AMBULATORY - MEDICINE [facility] Social History: Smoking Status (Most current) and Tobacco Use (All prior to encounter date) This section includes the most current, and the historical, smoking and tobacco- related health factors from the [place] facility where the Encounter took place. Current Smoking Status This section includes the most current smoking, or tobacco-related health factor, from the [place] facility where the Encounter took place. Date/Time Current Smoking Status Comment Facil ity Nov 19, 2023 08:30 AM VA-TOBACCO NEVER USED [facility] Advance Directives: All historical and current Section Date Range: From patient's date of to the date document was created. This section includes ALL of a patient's completed or amended [place] Advance and Rescinded Directives. The entries below indicate that a directive exists for the patient, but an actual copy is not included with this document. The data comes from all [place] facilities. Date Advance Directives Provider Source Dec 28, 2021 ADVANCE DIRECTIVE DISCUSSION PHYLLIS GUPTA [facility] Encounter Notes: All associated encounter notes This section contains the clinical notes associated to the Encounter. Date/Time Encounter Note(s) Provider Source May 25, 2024 07:55 AM CHIROPRACTIC NOTE: LOCAL TITLE: CHIROPRACTIC [facility] F/U [facility] STANDARD TITLE: CHIROPRACTIC NOTE DATE OF NOTE: MAY 25, 2024@07:55 ENTRY DATE: MAY 25, 2024@07:55:39 AUTHOR: KNIEPER,TERRANCE J EXP COSIGNER: URGENCY: STATUS: COMPLETED SUBJECTIVE: [facility] presents to follow up chiropractic visit with back and neck pain. Since their last visit the [facility] mentions flare up of back pain on friday after waking up, pointing along left thoracolumbar junction, during flare up pain was reported as 8/10, at times making it difficult to take a full breath. He denies injury or trauma to the area, he reports this past week has been a bit more labor intensive with increased lifting/bending/twisting. During flare up on friday was using heat/stretching with some benefit, waking up on friday his flare up was improving and not as sharp, and thought he was doing much better until he had another flare up yesterday at work. His flare up on friday was exacerbated by standing for extended periods of time and becoming sharp. He notes pain this morning is doing better rating as 4/10. He notes this morning was experencing a numbness sensation localized along left foot. He denies difficulty with urination or pain radiating into the groin area. When using stretches as mentioned above, he notes difficulty with thoracic mobility exercises, most notible when turning to the left, right rotation was much easier. He notes continued benefit with engaging in life care planner. He reports having a TENS unit but did not use during flare up, would like a new one as his old one is broken, also open to [facility] yoga consult. As for cervical complaint he notes stiffness along cervical region continues to remain hit or miss depending on the day. GOALS: Improve mobility, decrease pain when transitioning [...] myotomes intact bilaterally without deficit. PLAN: The was informed of student involvement in treatment plan for todays visit, patient agreed to student participation in treatment by Clinton Blum. Plan of care will consist of 4-6 visits consisting of chiropractic manipulation with an incremental increase in home exercise depending on the patients response. The patient agrees to this plan. Treatment consisted of prone thoracic spine chiropractic manipulation, supine cervical spine chiropractic manipulation, side-lying lumbar spine and SIJ chiropractic manipulation. Manual therapy consisting of cross friction and vibratory massage of the rhomboids, upper trapezius, cervical/thoracolumbar paraspinals, quadratus lumborum and levator scapula muscles. Manual therapy 9 minutes. TENS unit ordered, [facility] yoga consult placed The patient reported feeling much better following their treatment. Treatment rendered without incident. HOME CARE: Kneeling thoracic mobility 5 reps 3-4 times daily, cervical retractions 5 reps 3-4 times daily RTC:4-6 wks /es/ TERRANCE LIND [facility] Chiropractic Physician Signed: 05/25/2024 11:48 TERRANCE LIND [facility]
--- OUTSIDE RECORDS SUMMARY | 2024-09-24 00:58 | XMS_ITS | Continuity of Care Document ---
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 It does not include entries that were removed or entered in error. Problem Status Onset Date Problem Type Date of Resolution Comments Source Plantar fasciitis Active 10/17/19 24 Diagnosis [id number] -[id number] Medgrp-Sco tt History of traumatic brain injury Active 06/09/19 07 Condition [facility] Contusion of toe Active Condition [facility]A [facility] Fracture of phalanx of hand Active Condition [facility] Subungual hematoma Active Condition 004 8A-[facility] Abdominal pain Active Condition [facility] Allergic rhinitis Active Condition [facility] Anxiety Active Condition [facility] Exposure to potentially hazardous substance ([facility] [id number]) Active Condition Nov 24 4 Entered By: JEREMY LENTZ Comment: Entered automatically through [facility] Problem List documentation program [facility] Exposure to potentially hazardous substance ([facility] [id number]) Active Condition Nov 29 4 Entered By: ELODIA RIVERS Comment: Entered automatically through WAY[facility] Problem List documentation program [facility] Functional urinary incontinence Active Condition [facility] Gastroesophageal reflux disease Active Condition [facility] Hyperlipidemia Active Condition [facility] Hyperlipidemia (SCT 73919591) Active Condition [facility] Low back pain Active Condition [facility] Obstructive sleep apnea Active Condition [facility] Pes planus Active Condition [facility] Plantar fasciitis Active Condition [facility] Shoulder pain Active Condition [facility] Sleep apnea Active Condition [facility] Testicular mass Active Condition [facility] Tinnitus Active Condition [facility] Vitamin D deficiency Active Condition 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 Diagnosis [facility] Diagnosis: ICD-10-CM M89.8X7 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ed disorders of bone, ankle and foot Active Diagnosis [facility] Diagnosis: ICD-10-CM Z00.00 Encntr for general adult medical exam w/o abnormal findings Active Diagnosis [facility] Diagnosis: ICD-10-CM G47.30 Sleep apnea, unspecified Active Diagnosis [facility] Medications Combined list of outpatient medications from Department of Defense and [facility] Affairs facilities.Medications provided include 1) outpatient medications from the last 15 months, and 2) patient-reported medications. Medication Details Route Status Patient Instructions Prescription Expires Prescription Number Last Dispense Date Ordering Provider Order Date Order Qty Source Bentyl 20 mg oral tablet 1 tab(s), Oral, QID, # 56 tab(s), 0 total refill(s ), [facility], Pharmacy : [facility] Oral (given by mouth) Complet ed 06/22/2023 3 2023 56.0 0048A-A Doreen Marrero calcium polycarboph il 625 mg oral tablet calcium polycarb ophil 625 mg oral tablet Start Date: 03/05/19 Stop Date: 06/22/23 Status: Complete d Repeat number: 1 Complet ed 06/22/20232023 No Facilit y Access CHOLECALCIF RU 25MCG (1,000UNIT) TAB TAKE ONE TABLET BY MOUTH ONCE A DAY FOR VITAMIN D DEFICIEN CY ORAL ACTIVE 12/15/2024 [id number] ZACHARIAH VIRK 2023 100 [facility] diclofenac 1% topical gel diclofen ac 1% topical gel Start Date: 02/02/20 Status: Ordered Repeat number: 1 Ordered 2019 No Facilit y Access fexofenadin e 180 mg oral tablet fexofena dine 180 mg oral tablet Start Date: 03/05/19 Status: Ordered Repeat number: 1 Ordered 2019 No Facilit y Access Gemtesa 75 mg tablet 75 mg, Oral, Daily, # 30 EA, 11 total refill(s ), Hard Stop Oral (given by mouth) Complet ed 08/22/2023 4 2023 30.0 Ambulat ory Pharmac y ibuprofen 400 mg oral tablet 1 tab(s), Oral, every 8 hr, # 16 tab(s), 0 total refill(s ), [facility], Pharmacy : [facility] Oral (given by mouth) Complet ed 06/22/2023 3 2023 16.0 0048A-A IRINEO Marrero ibuprofen 400 mg oral tablet 1 tab(s), Oral, every 8 hr, # 16 tab(s), 0 total refill(s ), [facility], Pharmacy : [facility] Oral (given by mouth) Ordered 2023 16.0 0048A-A IRINEO Marrero ibuprofen 800 mg oral tablet ibuprofe n 800 mg oral tablet Start Date: 03/05/19 Status: Ordered Repeat number: 1 Ordered 2019 No Facilit y Access LORATADINE 10MG TAB TAKE ONE TABLET BY MOUTH ONCE A DAY FOR ALLERGIC RHINITIS ON EMPTY STOMACH ORAL ACTIVE 11/19/2024 [id number] VIRKZACHARIAH LBY R 2023 90 [facility] PANTOPRAZOL E NA 40MG TAB,EC TAKE ONE TABLET BY MOUTH EVERY MORNING BEFORE A MEAL FOR GASTROES OPHAGEAL REFLUX DISEASE TAKE 30 MINUTES BEFORE MEAL(S) ORAL ACTIVE 11/19/2024 [id number] VIRK,ZACHARIAH LBY R 2023 90 [facility] PANTOPRAZOL E NA 40MG TAB,EC TAKE ONE TABLET BY MOUTH EVERY DAY ORAL 07/21/2024 [id number] LUZ WATSON 2023 [facility] R[facility] 20 mg oral delayed release tablet RABEpraz ole 20 mg oral delayed release tablet Start Date: 02/02/20 Status: Ordered Repeat number: 1 Ordered 2019 No Facilit y Access tolterodine 4 mg oral capsule, extended release tolterod ine 4 mg oral capsule, extended release Start Date: 03/05/19 Stop Date: 06/22/23 Status: Complete d Repeat number: 1 Complet ed 06/22/20232023 No Facilit y Access Immunizations Combined list of available immunizations from the Department of Defense and Veterans Affairs facilities. Immunization Series Date Given Administered By Site Reaction Lot Number CVX Code Drug Barrel Rifler Status Comments Source INFLUENZA, SPLIT VIRUS, TRIVALENT, PF 2023 JP TESFAYE LEFT DELTO ID [id number] 140 complet ed Completed Series, ADMINISTE RED AT [facility] INFLUENZA, INJECTABLE, QUADRIVALENT, PRESERVATIVE FREE 2022 BLAYNE ESPINOZA RIGHT DELTO ID [id number] 150 complet ed Completed Series, [facility], UNSPECIFIED FORMULATION 2021 88 complet ed [facility] INFLUENZA, UNSPECIFIED FORMULATION 2020 88 complet ed [facility]. GABRIELE COVID-19 (Mtivity), MRNA, LNP-S, PF, 30 MCG/0.3 ML DOSE 2 2020 208 complet ed [facility] G[facility] COVID-19 (Mtivity), MRNA, LNP-S, PF, PHANI-SUCROSE, 30 MCG/0.3 ML (AGES 12+ YEARS) 2020 309 complet ed HISTORICA L INFORMATI ON - FROM PATIENT'S WRITTEN RECORD, [facility] COVID-19 (Mtivity), MRNA, LNP-S, PF, 30 MCG/0.3 ML DOSE 1 2020 208 complet ed [facility] GABRIELE COVID-19 (Mtivity), MRNA, LNP-S, PF, PHANI-SUCROSE, 30 MCG/0.3 ML (AGES 12+ YEARS) 2020 309 complet ed HISTORICA L INFORMATI ON - FROM PATIENT'S WRITTEN RECORD, [facility] influenza, injectable, quadrivalent- pf 2018 [id number] 150 [employer] complet ed influenza , injectabl e, quadrival ent-pf 05/13/19 Given Ambulat ory Pharmac y Cameroonian Encephalitis IM 2017 zzLef t Arm [id number] 134 complet ed Cameroonian Encephali tis IM 06/04/18 Given Ambulat ory Pharmac y influenza, injectable, quadrivalent- pf 2017 [id number] [employer] complet ed influenza , injectabl e, quadrival ent-pf 02/24/18 Given Ambulat ory Pharmac y Cameroonian Encephalitis IM 2017 [id number] 134 Unknown complet ed Cameroonian Encephali tis IM 02/24/18 Given Ambulat ory Pharmac y typhoid Vi capsular polysaccharid e vac 2017 [id number] sanofi pasteur complet ed typhoid Vi capsular polysacch aride vac 02/24/18 Given Ambulat ory Pharmac y anthrax vaccine 2017 [id number] [employer] complet ed anthrax vaccine 02/24/18 Given Ambulat ory Pharmac y tetanus, diphtheria, acellular pertu is 2016 zzLef t Arm [id number] 115 GlaxoSmithKli ne complet ed tetanus, diphtheri a, acellular pertussis 03/13/17 Given Ambulat ory Pharmac y TDAP 2016 115 complet ed HISTORICA L INFORMATI ON - FROM PATIENT'S WRITTEN RECORD, [facility] anthrax vaccine 2016 [id number] [employer] complet ed anthrax vaccine 11/14/16 Given Ambulat ory Pharmac y vaccinia (smallpox) vaccine 2016 [id number] 75 Sanofi Pasteur Incorporated complet ed vaccinia (smallpox ) vaccine 11/14/16 Given Ambulat ory Pharmac y influenza, seasonal, injectable-pf 2015 [id number] 140 Seqirus complet ed influenza , seasonal, injectabl e-pf 04/08/16 Given Ambulat ory Pharmac y influenza, live, intranasal,qu adrivalent 2014 [id number] [employer] comple t ed influenza , live, intranasa l,quadriv alent 05/25/15 Given Ambulat ory Pharmac y measles/mumps /rubella virus vaccine 2013 [id number] Merck & Company Inc complet ed measles/m umps/rube lla virus vaccine 05/16/14 Given Ambulat ory Pharmac y influenza, live, intranasal,qu adrivalent 2013 [id number] 149 [facility] t ed influenza , live, intranasa l,quadriv alent 03/24/14 Given Ambulat ory Pharmac y anthrax vaccine 2013 [id number] 24 [employer] complet ed anthrax vaccine 10/25/13 Given Ambulat ory Pharmac y typhoid Vi capsular polysaccharid e vac 2012 [id number] sanofi pasteur complet ed typhoid Vi capsular polysacch aride vac 04/12/13 Given Ambulat ory Pharmac y anthrax vaccine 2012 [id number] 24 [employer] complet ed anthrax vaccine 04/12/13 Given Ambulat ory Pharmac y influenza, live, intranasal,qu adrivalent 2012 [id number] 149 [facility] t ed influenza , live, intranasa l,quadriv alent 03/25/13 Given Ambulat ory Pharmac y influenza virus vaccine, whole virus 2011 zzLef t Arm [id number] 16 sanofi pasteur complet ed influenza virus vaccine, whole virus 03/17/12 Given Ambulat ory Pharmac y influenza virus vaccine, live 2010 [id number] 111 [facility] t ed influenza virus vaccine, live 02/06/11 Given Ambulat ory Pharmac y influenza, seasonal, intradermal-p f 2010 UNK 144 Unknown complet ed influenza , seasonal, intraderm al-pf 02/06/11 Given Ambulat ory Pharmac y influenza virus vaccine, live 2009 [id number] 111 [employer] [facility] t ed influenza virus vaccine, live 03/23/10 Given Ambulat ory Pharmac y tetanus, diphtheria, acellular pertu is 2009 [id number] 115 Re[employer] ne complet ed tetanus, diphtheri a, acellular pertussis 02/16/10 Given Ambulat ory Pharmac y anthrax vaccine 2009 [id number] Unknown complet ed anthrax vaccine 09/18/09 Given Ambulat ory Pharmac y Novel influenza-H1N 1-09, injectable 2008 [id number] 127 Novartis Pharmaceutica ls complet ed Novel influenza -S1V5-25, injectabl e 04/25/09 Given Ambulat ory Pharmac y influenza virus vaccine, live 2008 [id number] 111 [employer] Inc comple t ed influenza virus vaccine, live 03/28/09 Given Ambulat ory Pharmac y typhoid Vi capsular polysaccharid e vac 2008 [id number] 101 Unknown complet ed typhoid Vi capsular polysacch aride vac 01/04/09 Given Ambulat ory Pharmac y anthrax vaccine 2008 [id number] [employer] complet ed anthrax vaccine 01/04/09 Given Ambulat ory Pharmac y influenza virus vaccine, live 2007 [id number] 111 Unknown complet ed influenza virus vaccine, live 04/20/08 Given Ambulat ory Pharmac y hepatitis A-hepatitis B vaccine 2007 [id number] 104 C[employer]ring complet ed hepatitis A-hepatit is B vaccine 06/26/07 Given Ambulat ory Pharmac y anthrax vaccine 2006 [id number] 24 Unknown complet ed anthrax vaccine 05/05/07 Given Ambulat ory Pharmac y hepatitis A adult vaccine 2006 [id number] 52 Unknown complet ed hepatitis A adult vaccine 05/05/07 Given Ambulat ory Pharmac y influenza virus vaccine, live 2006 [id number] 111 Unknown complet ed influenza virus vaccine, live 05/05/07 Given Ambulat ory Pharmac y hepatitis A-hepatitis B vaccine 2006 [id number] 104 [employer] complet ed hepatitis A-hepatit is B vaccine 07/04/06 Given Ambulat ory Pharmac y hepatitis A-hepatitis B vaccine 2005 [id number] 104 [employer] complet ed hepatitis A-hepatit is B vaccine 04/23/06 Given Ambulat ory Pharmac y typhoid Vi capsular polysaccharid e vac 2005 [id number] 101 C[employer]ring complet ed typhoid Vi capsular polysacch aride vac 04/23/06 Given Ambulat ory Pharmac y vaccinia (smallpox) vaccine 2005 [id number] CSL Behring complet ed vaccinia (smallpox ) vaccine 04/23/06 Given Ambulat ory Pharmac y influenza virus vaccine, live 2005 [id number] 111 C[employer] complet ed influenza virus vaccine, live 02/25/06 Given Ambulat ory Pharmac y influenza virus vaccine,split 2002 UNK 15 Unknown complet ed influenza virus vaccine,s plit 04/14/03 Given Ambulat ory Pharmac y measles/mumps /rubella virus vaccine 2001 UNK 03 Unknown complet ed measles/m umps/rube lla virus vaccine 09/11/01 Given Ambulat ory Pharmac y poliovirus vaccine, inactivated 2001 UNK 10 Unknown complet ed polioviru s vaccine, inactivat ed 09/10/01 Given Ambulat ory Pharmac y tetanus-dipht h toxoids (Td) adult/adol 2001 UNK 09 Unknown complet ed tetanus-d iphth toxoids (Td) adult/ado l 09/10/01 Given Ambulat ory Pharmac y Results Combined list of recent chemistry, hematology and other laboratory results from Department of Defense and Veterans Affairs, ranging from 15 months to all on record, depending upon the facility. Order Name Results Value Reference Range Date Interpretation Specimen Comments Source HIV COMBO FOURTH GENERATI ON (STL) HIV 1+2 AB+HIV1 P24 AG [PRESENCE] IN SERUM OR PLASMA BY IMMUNOASSA Y Nonreact taina 11/18 Specimen Type: SERUM No comment entered. Ordering Provider: ASHLEY VIRK Report Released Date/Time: Nov 19, 2023 09:14 AM Reporting Lab: [facility] [address] [facility] [address] Performing Lab: [facility] [address] [place] [phone] [facility] HEP C Ab HCV Ab (STL) HEPATITIS C VIRUS AB [PRESENCE] IN SERUM Nonreact taina 11/18 Specimen Type: SERUM No comment entered. Ordering Provider: ASHLEY VIRK Report Released Date/Time: Nov 19, 2023 09:14 AM Reporting Lab: [facility] [address] [facility] [address] Performing Lab: [facility] [address] [place] [phone] [facility] CBC LEUKOCYTES [#/VOLUME] IN BLOOD BY AUTOMATED COUNT 4.6 10*3/uL 3.6 - 11.2 11/18 Specimen Type: BLOOD No comment entered. Ordering Provider: ASHLEY VIRK Report Released Date/Time: Nov 19, 2023 09:14 AM Reporting Lab: [facility] [address] [place] [phone] Performing Lab: [address] [address] [facility] CBC ERYTHROCYT ES [#/VOLUME] IN BLOOD BY AUTOMATED COUNT 4.65 10*6/uL 4.10 - 5.70 11/18 Specimen Type: BLOOD No comment entered. Ordering Provider: ASHLEY VIRK Report Released Date/Time: Nov 19, 2023 09:14 AM Reporting Lab: [address] [address] Performing Lab: [address] [phone] [facility] CBC HEMOGLOBIN [MASS/VOLU ME] IN BLOOD 14.3 g/dL 13.1 - 16.8 11/18 Specimen Type: BLOOD No comment entered. Ordering Provider: ASHLEY VIRK Report Released Date/Time: Nov 19, 2023 09:14 AM Reporting Lab: [facility] [address] [place] [phone] Performing Lab: [address] [address] [facility] CBC HEMATOCRIT [VOLUME FRACTION] OF BLOOD 42.8 38.2 - 48.4 11/18 Specimen Type: BLOOD No comment entered. Ordering Provider: ASHLEY VIRK Report Released Date/Time: Nov 19, 2023 09:14 AM Reporting Lab: [facility] [address] Performing Lab: [address] [address] [facility] CBC MCV [ENTITIC VOLUME] BY AUTOMATED COUNT 92.0 fL 80.0 - 100.0 11/18 Specimen Type: BLOOD No comment entered. Ordering Provider: ASHLEY VIRK Report Released Date/Time: Nov 19, 2023 09:14 AM Reporting Lab: [address] [address] Performing Lab: [address] [phone] [place] [address] CBC MCH [ENTITIC MASS] BY AUTOMATED COUNT 30.8 pg 27.0 - 34.0 11/18 Specimen Type: BLOOD No comment entered. Ordering Provider: ASHLEY VIRK Report Released Date/Time: Nov 19, 2023 09:14 AM Reporting Lab: [address] [address] Performing Lab: [address] [phone] [place] [address] CBC MCHC [MASS/VOLU ME] BY AUTOMATED COUNT 33.4 g/dL 33.0 - 36.0 11/18 Specimen Type: BLOOD No comment entered. Ordering Provider: ASHLEY VIRK Report Released Date/Time: Nov 19, 2023 09:14 AM Reporting Lab: [address] [address] Performing Lab: [address] [address] [facility] CBC PLATELETS [#/VOLUME] IN BLOOD BY AUTOMATED COUNT 314 10*3/uL 150 - 400 11/18 Specimen Type: BLOOD No comment entered. Ordering Provider: ASHLEY VIRK Report Released Date/Time: Nov 19, 2023 09:14 AM Reporting Lab: [address] [address] Performing Lab: [facility] [address] [facility] [address] [facility] CBC PLATELET MEAN VOLUME [ENTITIC VOLUME] IN BLOOD BY AUTOMATED COUNT 10.4 fL 7.5 - 11.2 11/18 Specimen Type: BLOOD No comment entered. Ordering Provider: ASHLEY VIRK Report Released Date/Time: Nov 19, 2023 09:14 AM Reporting Lab: [facility] [address] [place] [phone] Performing Lab: [address] [address] [facility] CBC ERYTHROCYT E DISTRIBUTI ON WIDTH [RATIO] BY AUTOMATED COUNT 12.3 11.8 - 15.1 11/18 Specimen Type: BLOOD No comment entered. Ordering Provider: ASHLEY VIRK Report Released Date/Time: Nov 19, 2023 09:14 AM Reporting Lab: [facility] [address] [place] [phone] Performing Lab: [facility] [address] [place] [phone] [facility] CBC LYMPHOCYTE S/100 LEUKOCYTES IN BLOOD BY AUTOMATED COUNT 30 11/18 Specimen Type: BLOOD No comment entered. Ordering Provider: ASHLEY VIRK Report Released Date/Time: Nov 19, 2023 09:14 AM Reporting Lab: [facility] [address] [place] [phone] Performing Lab: [facility] [address] [place] [phone] [facility] CBC MONOCYTES/ 100 LEUKOCYTES IN BLOOD BY AUTOMATED COUNT 12 11/18 Specimen Type: BLOOD No comment entered. Ordering Provider: ASHLEY VIRK Report Released Date/Time: Nov 19, 2023 09:14 AM Reporting Lab: [facility] [address] [place] [phone] Performing Lab: [facility] [address] [place] [phone] [facility] CBC NEUTROPHIL S/100 LEUKOCYTES IN BLOOD BY AUTOMATED COUNT 55 11/18 Specimen Type: BLOOD No comment entered. Ordering Provider: ASHLEY VIRK Report Released Date/Time: Nov 19, 2023 09:14 AM Reporting Lab: [facility] [address] [facility] [address] Performing Lab: [facility] [address] [place] [phone] [place] [address] CBC EOSINOPHIL S/100 LEUKOCYTES IN BLOOD BY AUTOMATED COUNT 2 11/18 Specimen Type: BLOOD No comment entered. Ordering Provider: ASHLEY VIRK Report Released Date/Time: Nov 19, 2023 09:14 AM Reporting Lab: [facility] [address] [place] [phone] Performing Lab: [address] [phone] CBC BASOPHILS/ 100 LEUKOCYTES IN BLOOD BY AUTOMATED COUNT 1 11/18 Specimen Type: BLOOD No comment entered. Ordering Provider: ASHLEY VIRK Report Released Date/Time: Nov 19, 2023 09:14 AM Reporting Lab: [facility] [address] [place] [phone] Performing Lab: [facility] [address] [place] [phone] [place] [address] CBC LYMPHOCYTE S [#/VOLUME] IN BLOOD BY AUTOMATED COUNT 1.38 10*3/uL 0.77 - 4.50 11/18 Specimen Type: BLOOD No comment entered. Ordering Provider: ASHLEY VIRK Report Released Date/Time: Nov 19, 2023 09:14 AM Reporting Lab: [facility] [address] [place] [phone] Performing Lab: [facility] [address] [place] [phone] [facility] CBC MONOCYTES [#/VOLUME] IN BLOOD BY AUTOMATED COUNT 0.55 10*3/uL 0.19 - 0.80 11/18 Specimen Type: BLOOD No comment entered. Ordering Provider: ASHLEY VIRK Report Released Date/Time: Nov 19, 2023 09:14 AM Reporting Lab: [place] [phone] Performing Lab: [address] [phone] CBC NEUTROPHIL S [#/VOLUME] IN BLOOD BY AUTOMATED COUNT 2.50 10*3/uL 2.10 - 8.00 11/18 Specimen Type: BLOOD No comment entered. Ordering Provider: ASHLEY VIRK Report Released Date/Time: Nov 19, 2023 09:14 AM Reporting Lab: [place] [address] Performing Lab: [address] CBC EOSINOPHIL S [#/VOLUME] IN BLOOD BY AUTOMATED COUNT 0.07 10*3/uL 0.00 - 0.60 11/18 Specimen Type: BLOOD No comment entered. Ordering Provider: ASHLEY VIRK Report Released Date/Time: Nov 19, 2023 09:14 AM Reporting Lab: [place] [address] Performing Lab: [address] [phone] [address] CBC BASOPHILS [#/VOLUME] IN BLOOD BY AUTOMATED COUNT 0.04 10*3/uL 0.00 - 0.20 11/18 Specimen Type: BLOOD No comment entered. Ordering Provider: ASHLEY VIRK Report Released Date/Time: Nov 19, 2023 09:14 AM Reporting Lab: [place] [address] Performing Lab: [phone] [place] [address] COMPREHE NSIVE METABOLI C PANEL CREATININE [MASS/VOLU ME] IN SERUM OR PLASMA 1.22 mg/dL 0.7 - 1.3 11/18 Specimen Type: PLASMA Comment: No hemolysis noted. Ordering Provider: ASHLEY VIRK Report Released Date/Time: Nov 19, 2023 09:14 AM Reporting Lab: [facility] [address] [place] [address] Performing Lab: [facility] [address] [address] [facility] COMPREHE NSIVE METABOLI C PANEL UREA NITROGEN [MASS/VOLU ME] IN SERUM OR PLASMA 13.1 mg/dL 9.0 - 25.0 11/18 Specimen Type: PLASMA Comment: No hemolysis noted. Ordering Provider: ASHLEY VIRK Report Released Date/Time: Nov 19, 2023 09:14 AM Reporting Lab: [facility] [address] [address] Performing Lab: [facility] [address] [address] [facility] COMPREHE NSIVE METABOLI C PANEL GLUCOSE [MASS/VOLU ME] IN SERUM OR PLASMA 80 mg/dL 72 - 99 11/18 Specimen Type: PLASMA Comment: No hemolysis noted. Ordering Provider: ASHLEY VIRK Report Released Date/Time: Nov 19, 2023 09:14 AM Reporting Lab: [facility] [address] [place] [phone] Performing Lab: [facility] [address] [address] [facility] COMPREHE NSIVE METABOLI C PANEL SODIUM [MOLES/VOL UME] IN SERUM OR PLASMA 139 meq/L 136 - 145 11/18 Specimen Type: PLASMA Comment: No hemolysis noted. Ordering Provider: ASHLEY VIRK Report Released Date/Time: Nov 19, 2023 09:14 AM Reporting Lab: [facility] [address] [place] [address] Performing Lab: [facility] [address] [facility] [address] [facility] COMPREHE NSIVE METABOLI C PANEL POTASSIUM [MOLES/VOL UME] IN SERUM OR PLASMA 4.4 meq/L 3.5 - 5 11/18 Specimen Type: PLASMA Comment: No hemolysis noted. Ordering Provider: ASHLEY VIRK Report Released Date/Time: Nov 19, 2023 09:14 AM Reporting Lab: [facility] [address] [address] Performing Lab: [facility] [address] [phone] [place] [address] COMPREHE NSIVE METABOLI C PANEL CHLORIDE [MOLES/VOL UME] IN SERUM OR PLASMA 106 meq/L 98 - 107 11/18 Specimen Type: PLASMA Comment: No hemolysis noted. Ordering Provider: ASHLEY VIRK Report Released Date/Time: Nov 19, 2023 09:14 AM Reporting Lab: [facility] [address] [address] Performing Lab: [facility] [address] [phone] [place] [address] COMPREHE NSIVE METABOLI C PANEL CARBON DIOXIDE, TOTAL [MOLES/VOL UME] IN SERUM OR PLASMA 25 meq/L 22 - 31 11/18 Specimen Type: PLASMA Comment: No hemolysis noted. Ordering Provider: ASHLEY VIRK Report Released Date/Time: Nov 19, 2023 09:14 AM Reporting Lab: [facility] [address] [phone] Performing Lab: [facility] [address] [phone] [place] [address] COMPREHE NSIVE METABOLI C PANEL CALCIUM [MASS/VOLU ME] IN SERUM OR PLASMA 9.5 mg/dL 8.4 - 10.4 11/18 Specimen Type: PLASMA Comment: No hemolysis noted. Ordering Provider: ASHLEY VIRK Report Released Date/Time: Nov 19, 2023 09:14 AM Reporting Lab: [facility] [address] [address] Performing Lab: [facility] [address] [address] [facility] COMPREHE NSIVE METABOLI C PANEL PROTEIN [MASS/VOLU ME] IN SERUM OR PLASMA 7.2 g/dL 6 - 8.6 11/18 Specimen Type: PLASMA Comment: No hemolysis noted. Ordering Provider: ASHLEY VIRK Report Released Date/Time: Nov 19, 2023 09:14 AM Reporting Lab: [facility] [address] [address] Performing Lab: [address] [address] [facility] COMPREHE NSIVE METABOLI C PANEL ALBUMIN [MASS/VOLU ME] IN SERUM OR PLASMA 4.4 g/dL 3.4 - 5 11/18 Specimen Type: PLASMA Comment: No hemolysis noted. Ordering Provider: ASHLEY VIRK Report Released Date/Time: Nov 19, 2023 09:14 AM Reporting Lab: [facility] [address] [place] [phone] Performing Lab: [facility] [address] [place] [phone] [facility] COMPREHE NSIVE METABOLI C PANEL BILIRUBIN. TOTAL [MASS/VOLU ME] IN SERUM OR PLASMA 1.2 mg/dL 0.2 - 1.2 11/18 Specimen Type: PLASMA Comment: No hemolysis noted. Ordering Provider: ASHLEY VIRK Report Released Date/Time: Nov 19, 2023 09:14 AM Reporting Lab: [facility] [address] [place] [phone] Performing Lab: [facility] [address] [place] [phone] [facility] COMPREHE NSIVE METABOLI C PANEL ALKALINE PHOSPHATAS E [ENZYMATIC ACTIVITY/V OLUME] IN SERUM OR PLASMA 75 U/L 40 - 150 11/18 Specimen Type: PLASMA Comment: No hemolysis noted. Ordering Provider: ASHLEY VIRK Report Released Date/Time: Nov 19, 2023 09:14 AM Reporting Lab: [facility] [address] [phone] Performing Lab: [facility] [address] [phone] [facility] COMPREHE NSIVE METABOLI C PANEL ASPARTATE AMINOTRANS FERASE [ENZYMATIC ACTIVITY/V OLUME] IN SERUM OR PLASMA 27 U/L 5 - 34 11/18 Specimen Type: PLASMA Comment: No hemolysis noted. Ordering Provider: ASHLEY VIRK Report Released Date/Time: Nov 19, 2023 09:14 AM Reporting Lab: [facility] [address] [place] [phone] Performing Lab: [facility] [address] [place] [phone] [place] [address] COMPREHE NSIVE METABOLI C PANEL ALANINE AMINOTRANS FERASE [ENZYMATIC ACTIVITY/V OLUME] IN SERUM OR PLASMA 22 U/L 8 - 40 11/18 Specimen Type: PLASMA Comment: No hemolysis noted. Ordering Provider: ASHLEY VIRK Report Released Date/Time: Nov 19, 2023 09:14 AM Reporting Lab: [facility] [address] [phone] Performing Lab: [facility] [address] [address] [facility] COMPREHE NSIVE METABOLI C PANEL GLOMERULAR FILTRATION RATE/1.73 SQ M.PREDICTE D [VOLUME RATE/AREA] IN SERUM, PLASMA OR BLOOD BY CREATININE -BASED FORMULA (CKD-EPI 2020) 73.6 60 11/18 Specimen Type: PLASMA Comment: No hemolysis noted. Ordering Provider: ASHLEY VIRK Report Released Date/Time: Nov 19, 2023 09:14 AM Reporting Lab: [facility] [address] [facility] [address] Performing Lab: [facility] [address] [phone] [facility] HGA1C HEMOGLOBIN A1C/HEMOGL OBIN.TOTAL IN BLOOD 5.6 4.0 - 6.0 11/18 Specimen Type: BLOOD No comment entered. Ordering Provider: ASHLEY VIRK Report Released Date/Time: Nov 19, 2023 09:14 AM Reporting Lab: [address] [address] Performing Lab: [address] [address] [facility] LIPID PANEL (STL) CHOLESTERO L [MASS/VOLU ME] IN SERUM OR PLASMA 184 mg/dL 0 - 200 11/18 Specimen Type: PLASMA Comment: No hemolysis noted. Ordering Provider: ASHLEY VIRK Report Released Date/Time: Nov 19, 2023 09:14 AM Reporting Lab: [address] [address] Performing Lab: [address] [address] [facility] LIPID PANEL (STL) TRIGLYCERI DE [MASS/VOLU ME] IN SERUM OR PLASMA 103 mg/dL 0 - 150 11/18 Specimen Type: PLASMA Comment: No hemolysis noted. Ordering Provider: ASHLEY VIRK Report Released Date/Time: Nov 19, 2023 09:14 AM Reporting Lab: [address] [address] Performing Lab: [address] [address] [facility] LIPID PANEL (STL) CHOLESTERO L IN LDL [MASS/VOLU ME] IN SERUM OR PLASMA BY CALCCARLOZ N 117 mg/dL 11/18 Specimen Type: PLASMA Comment: No hemolysis noted. Ordering Provider: ASHLEY VIRK Report Released Date/Time: Nov 19, 2023 09:14 AM Reporting Lab: [address] [address] Performing Lab: [address] [address] [facility] LIPID PANEL (STL) CHOLESTERO L IN HDL [MASS/VOLU ME] IN SERUM OR PLASMA 46 mg/dL 40 11/18 Specimen Type: PLASMA Comment: No hemolysis noted. Ordering Provider: ASHLEY VIRK Report Released Date/Time: Nov 19, 2023 09:14 AM Reporting Lab: [place] [address] Performing Lab: [place] [phone] VITAMIN D, 25-HYDRO XY 25-HYDROXY VITAMIN D3 [MASS/VOLU ME] IN SERUM OR PLASMA 28.7 ng/mL 30 - 96 11/18 L Specimen Type: SERUM No comment entered. Ordering Provider: ASHLEY VIRK Report Released Date/Time: Nov 19, 2023 09:14 AM Reporting Lab: [place] [phone] Performing Lab: [place] [phone] TSH (MA-PB) THYROTROPI N [UNITS/VOL UME] IN SERUM OR PLASMA 0.730 u[IU]/mL 0.47 - 5 11/18 Specimen Type: SERUM No comment entered. Ordering Provider: ASHLEY VIRK Report Released Date/Time: Nov 19, 2023 09:14 AM Reporting Lab: [facility] [address] [place] [phone] Performing Lab: [place] [phone] Infectio us Disease Strep A, Rapid Negative (06/22/23 7:12 PM) 06/23 N [facility] ore OCCULT BLOOD FIT X1 SCREEN_ HEMOGLOBIN .GASTROINT ESTINAL.LO WER [PRESENCE] IN STOOL BY IMMUNOASSA Y Negative 04/25 Specimen Type: FECES No comment entered. Ordering Provider: EMILIO WATSON Report Released Date/Time: Apr 17, 2023 10:46 AM Reporting Lab: [facility] [address] [facility] [address] Performing Lab: [facility] [address] [facility] [address] [facility] LIPID PROFILE_ CHOLESTERO L [MASS/VOLU ME] IN SERUM OR PLASMA 204 mg/dL <199 - 199 04/11 H Specimen Type: SERUM Comment: *HDL Classificat ions (NCEP-ATP III Guidelines) : <40 Major risk factor for heart disease >=60 Negative risk factor for heart disease *Total Cholesterol Guidelines (mg/dL): <200 Desirable 200-240 Borderline risk >240 High risk * eGFR Guidelines -- Stages of CKD eGFR CKD Stage Interpretat ion ------- >=90 G1 Normal 60-89 G2 Mild Decrease 45-59 G3A Mild to moderate decrease 30-44 G3B Moderate to severe decrease 15-29 G4 Severe decrease <15 G5 Kidney failure The eGFR (mL/min/1.7 3m2) is calculated using the CKI-EPI 2020 equation based on serum creatinine, age, and sex. It is normalized to 1.73 m2 body surface area. Results are only valid for adults (>=18 years). This calculation is inaccurate in patients with rapidly changing renal function. Ordering Provider: EMILIO WATSON Report Released Date/Time: Apr 09, 2023 10:55 AM Reporting Lab: [address] [address] Performing Lab: [address] [phone] [facility] LIPID PROFILE_ TRIGLYCERI DE [MASS/VOLU ME] IN SERUM OR PLASMA 187 mg/dL <149 - 149 04/11 H Specimen Type: SERUM Comment: *HDL Classificat ions (NCEP-ATP III Guidelines) : <40 Major risk factor for heart disease >=60 Negative risk factor for heart disease *Total Cholesterol Guidelines (mg/dL): <200 Desirable 200-240 Borderline risk >240 High risk * eGFR Guidelines -- Stages of CKD eGFR CKD Stage Interpretat ion ------- >=90 G1 Normal 60-89 G2 Mild Decrease 45-59 G3A Mild to moderate decrease 30-44 G3B Moderate to severe decrease 15-29 G4 Severe decrease <15 G5 Kidney failure The eGFR (mL/min/1.7 3m2) is calculated using the CKI-EPI 2020 equation based on serum creatinine, age, and sex. It is normalized to 1.73 m2 body surface area. Results are only valid for adults (>=18 years). This calculation is inaccurate in patients with rapidly changing renal function. Ordering Provider: EMILIO WATSON Report Released Date/Time: Apr 09, 2023 10:55 AM Reporting Lab: [address] [address] Performing Lab: [address] [address] [facility] LIPID PROFILE_ CHOLESTERO L IN HDL [MASS/VOLU ME] IN SERUM OR PLASMA 46 mg/dL 40 - 59 04/11 Specimen Type: SERUM Comment: *HDL Classificat ions (NCEP-ATP III Guidelines) : <40 Major risk factor for heart disease >=60 Negative risk factor for heart disease *Total Cholesterol Guidelines (mg/dL): <200 Desirable 200-240 Borderline risk >240 High risk * eGFR Guidelines -- Stages of CKD eGFR CKD Stage Interpretat ion ------- >=90 G1 Normal 60-89 G2 Mild Decrease 45-59 G3A Mild to moderate decrease 30-44 G3B Moderate to severe decrease 15-29 G4 Severe decrease <15 G5 Kidney failure The eGFR (mL/min/1.7 3m2) is calculated using the CKI-EPI 2021 equation based on serum creatinine, age, and sex. It is normalized to 1.73 m2 body surface area. Results are only valid for adults (>=18 years). This calculation is inaccurate in patients with rapidly changing renal function. Ordering Provider: EMILIO WATSON Report Released Date/Time: Apr 09, 2023 10:55 AM Reporting Lab: [address] [address] Performing Lab: [address] [address] [facility] LIPID PROFILE_ CHOLESTERO L IN LDL [MASS/VOLU ME] IN SERUM OR PLASMA 121 mg/dL 0 - 99 04/11 H Specimen Type: SERUM Comment: *HDL Classificat ions (NCEP-ATP III Guidelines) : <40 Major risk factor for heart disease >=60 Negative risk factor for heart disease *Total Cholesterol Guidelines (mg/dL): <200 Desirable 200-240 Borderline risk >240 High risk * eGFR Guidelines -- Stages of CKD eGFR CKD Stage Interpretat ion ------- >=90 G1 Normal 60-89 G2 Mild Decrease 45-59 G3A Mild to moderate decrease 30-44 G3B Moderate to severe decrease 15-29 G4 Severe decrease <15 G5 Kidney failure The eGFR (mL/min/1.7 3m2) is calculated using the CKI-EPI 2021 equation based on serum creatinine, age, and sex. It is normalized to 1.73 m2 body surface area. Results are only valid for adults (>=18 years). This calculation is inaccurate in patients with rapidly changing renal function. Ordering Provider: EMILIO WATSNO Report Released Date/Time: Apr 09, 2023 10:55 AM Reporting Lab: [address] [address] Performing Lab: [address] [address] [facility] LIPID PROFILE_ CHOLESTERO L IN VLDL [MASS/VOLU ME] IN SERUM OR PLASMA BY CALCULATIO N 37 mg/dL 0 - 30 04/11 H Specimen Type: SERUM Comment: *HDL Classificat ions (NCEP-ATP III Guidelines) : <40 Major risk factor for heart disease >=60 Negative risk factor for heart disease *Total Cholesterol Guidelines (mg/dL): <200 Desirable 200-240 Borderline risk >240 High risk * eGFR Guidelines -- Stages of CKD eGFR CKD Stage Interpretat ion ------- >=90 G1 Normal 60-89 G2 Mild Decrease 45-59 G3A Mild to moderate decrease 30-44 G3B Moderate to severe decrease 15-29 G4 Severe decrease <15 G5 Kidney failure The eGFR (mL/min/1.7 3m2) is calculated using the CKI-EPI 2020 equation based on serum creatinine, age, and sex. It is normalized to 1.73 m2 body surface area. Results are only valid for adults (>=18 years). This calculation is inaccurate in patients with rapidly changing renal function. Ordering Provider: EMILIO WATSON Report Released Date/Time: Apr 09, 2023 10:55 AM Reporting Lab: [address] [address] Performing Lab: [address] [address] [facility] Vital Signs Combined list of inpatient and outpatient Vital Signs from Department of Defense and Veterans Affairs, ranging from 12 months to all on record, depending upon the facility. Vital Sign Value Date Comments Source Systolic Blood Pressure 119 mm[Hg] 09/17/2022 12:25:00 0048-JAZMYNE Enciso Diastolic Blood Pressure 74 mm[Hg] 09/17/2022 12:25:00 0048C-ACH [facility] Mean Arterial Pressure, Calc 89 mm[Hg] 09/17/2022 12:25:00 0048C-JAZMYNE [place] Peripheral Pulse Rate 58 bpm 09/17/2022 12:25:00 0048C-JAZMYNE [facility] Peripheral Pulse Rate 79 bpm 11/18/2022 11:53:00 0048C-JAZMYNE [facility] Mean Arterial Pressure, Calc 87 mm[Hg] 11/18/2022 11:53:00 0048C-JAZMYNE [facility] Systolic Blood Pressure 113 mm[Hg] 11/18/2022 11:53:00 0048C-JAZMYNE [facility] Diastolic Blood Pressure 74 mm[Hg] 11/18/2022 11:53:00 0048C-JAZMYNE [facility] Systolic Blood Pressure 122 mm[Hg] 12/16/2022 12:01:00 0048C-JAZMYNE Enc[facility] Diastolic Blood Pressure 73 mm[Hg] 12/16/2022 12:01:00 0048C-JAZMYNE [facility] Mean Arterial Pressure, Calc 89 mm[Hg] 12/16/2022 12:01:00 0048C-JAZMYNE [facility] Peripheral Pulse Rate 64 bpm 12/16/2022 12:01:00 0048C-JAZMYNE Z[facility] Temperature Oral 36.8 Vielka 06/22/2023 23:28:00 0048A-JAZMYNE Enciso Systolic Blood Pressure 124 mm[Hg] 06/22/2023 23:28:00 0048A-JAZMYNE Enc[facility] Diastolic Blood Pressure 85 mm[Hg] 06/22/2023 23:28:00 0048A-JAZMYNE Enciso Respiratory Rate 18 br/min 06/22/2023 23:28:00 0048A-JAZMYNE [facility]aria Peripheral Pulse Rate 63 bpm 06/22/2023 23:28:00 0048A-JAZMYNE Zaria Respiratory Rate 16 br/min 09/14/2022 16:47:00 0048A-JAZMYNE Enciso Peripheral Pulse Rate 59 bpm 09/14/2022 16:47:00 0048A-JAZMYNE Enciso Systolic Blood Pressure 120 mm[Hg] 09/14/2022 16:47:00 0048A-JAZMYNE Enciso Diastolic Blood Pressure 78 mm[Hg] 09/14/2022 16:47:00 0048A-JAZMYNE Enciso Temperature Oral 36.7 Vielka 09/14/2022 16:47:00 0048A-JAZMYNE Enciso Temperature Oral 36.4 Vielka 07/09/2023 18:33:00 0048A-JAZMYNE Enciso Respiratory Rate 18 br/min 07/09/2023 18:33:00 0048A-JAZMYNE [place] Peripheral Pulse Rate 64 bpm 07/09/2023 18:33:00 0048A-JAZMYNE [place] Systolic Blood Pressure 123 mm[Hg] 07/09/2023 18:33:00 0048A-JAZMYNE [place] Diastolic Blood Pressure 79 mm[Hg] 07/09/2023 18:33:00 0048A-JAZMYNE [place] Peripheral Pulse Rate 55 bpm 10/11/2022 13:26:00 0048Fanny-JAZMYNE [place] Mean Arterial Pressure, Calc 89 mm[Hg] 10/11/2022 13:26:00 0048C-JAZMYNE Enciso Systolic Blood Pressure 119 mm[Hg] 10/11/2022 13:26:00 0048C-JAZMYNE [place] Diastolic Blood Pressure 74 mm[Hg] 10/11/2022 13:26:00 0048C-JAZMYNE Enciso Temperature Oral 36.7 Vielka 04/21/2023 18:08:00 0048A-JAZMYNE [place] Respiratory Rate 18 br/min 04/21/2023 18:08:00 0048A-JAZMYNE [place] Peripheral Pulse Rate 62 bpm 04/21/2023 18:08:00 004Karen-JAZMYNE Zaria Systolic Blood Pressure 128 mm[Hg] 04/21/2023 18:08:00 004Karen-JAZMYNE [place] Diastolic Blood Pressure 82 mm[Hg] 04/21/2023 18:08:00 004Karen-JAZMYNE [place] BP Site Left arm 10/17/2023 13:49:00 6130C -Af-C-375Th [facility] Systolic Blood Pressure 109 mm[Hg] 10/17/2023 13:49:00 2974H-Pk-E-375Th [facility] Diastolic Blood Pressure 72 mm[Hg] 10/17/2023 13:49:00 9632A-Ud-S-375Th [facility] Blood Pressure Manual Automatic 10/17/2023 13:49:00 4451U-Wk-X-375Th [facility] Peripheral Pulse Rate 69 bpm 10/17/2023 13:49:00 4769H-Pp-W-375Th [facility] Mean Arterial Pressure, Calc 84 mm[Hg] 10/17/2023 13:49:00 3719T-Aw-X-3 75Th [facility] Respiratory Rate 18 br/min 10/17/2023 13:49:00 9547V-Oo-Z-375Th [facility] SYSTOLIC BLOOD PRESSURE 110 11/19/2023 08:19:05 STMiguelina WOOD [facility] DIASTOLIC BLOOD PRESSURE 69 11/19/2023 08:19:05 [facility] PULSE OXIMETRY 97 11/19/2023 08:19:05 S Maribel WOOD [facility] WEIGHT 189 11/19/2023 08:19:05 [facility] BMI 29 kg/m2 11/19/2023 08:19:05 [facility] LUPER [facility] PAIN 4 11/19/2023 08:19:[facility] HEIGHT 68 11/19/2023 08:19:[facility] TEMPERATURE 98.3 11/19/2023 08:19:05 [facility] PULSE 55 11/19/2023 08:19:05 [facility] RESPIRATION 18 11/19/2023 08:19:05 [facility] [place] Encounters Combined list of: 1) Encounters from Department of Veterans Affairs facilities going backup to the last 18 months, not all VA inpatient encounters are included; 2) Encounters from the Department of Defense facilities going backup to 280 months. Location Location Details Encounter Type Encounter Number Reason For Visit Attending Provider ADM Date DC Date Status Disposition Source [facility] Outpatient Encounter [id number] 04/09 [facility] Outpatient Encounter [id number] 04/17 [facility] OFFICE O/P EST MOD 30-39 MIN [id number] Diagnos is: ICD-10- CM G47.30 Sleep apnea, unspeci fied EMILIO WATSON 04/17 [facility] Outpatient Encounter [id number] 06/16 [facility] Outpatient Encounter [id number] 07/11 [facility] Outpatient Encounter [id number] ROBERTO ESPINOZA 07/21 [facility] Outpatient Encounter [id number] 08/03 [facility] 6130C-Af- C-375Th [facility] [id number] Plantar fascial fibroma rock RAE 10/16 Discharge Disposition: Home or Self Care 6130C-A f-C-375 Th [facility]NAG[facility] [id number] KIRAN ELIZABETH 10/21 [facility] Outpatient Encounter [id number] 10/28 [facility] Outpatient Encounter [id number] 11/06 [facility] Outpatient Encounter [id number] 11/17 [facility] Outpatient Encounter [id number] 11/18 [facility] Outpatient Encounter [id number] Diagnos is: ICD-10- CM Z00.00 Encntr for general adult medical exam w/o abnorma l finding s SHAN VIRK 11/18 [facility] OFF/OP CNSLTJ NEW/EST LOW 30 [id number] Diagnos is: ICD-10- CM M89.8X7 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 ed disorde rs of bone, ankle and foot ST JAGDEEP UART L 11/[address] 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 VICTORIA TY 12/28 [facility] HLTH&WB COACHING INDIV 1ST [id number] Diagnos is: ICD-10- CM 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 SHEEBA TENORIO 01/11 [facility] MANUAL THERAPY 1/> [place] [id number] Diagnos is: ICD-10- CM M54.50 Low back pain, unspeci fied FELICIANO LIND TTHEW J 01/19 [facility] MANUAL THERAPY 1/> [place] [id number] Diagnos is: ICD-10- CM M54.50 Low back pain, unspeci fied FELICIANO LIND TTHEW J 02/18 [facility] IMMUNIZATI ON ADMIN [id number] Diagnos is: ICD-10- CM Z23 Encount er for immuniz ju TESFAYE,CHR ISTINE M 03/01 [facility] MANUAL THERAPY 1/> [place] [id number] Diagnos is: ICD-10- CM M54.2 Cervica lgia FELICIANO LIND TTHEW J 03/11 [facility] MANUAL THERAPY /> [place] [id number] Diagnos is: ICD-10- CM M54.50 Low back pain, unspeci shanelleed FELICIANO LIND TTHEW J 04/13 [facility] MANUAL THERAPY 1/> [place] [id number] Diagnos is: ICD-10- CM M54.50 Low back pain, unspeci fied FELICIANO LIND TTHEW J 05/11 [facility] MANUAL THERAPY /> [place] [id number] Diagnos is: ICD-10- CM M54.50 Low back pain, unspeci fied FELICIANO LIND TTHEW J 05/25 [facility] THERAPEUTI C PROCEDURES [id number] [id number] Diagnos is: ICD-10- CM 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50 Low back pain, unspeci arelis LIND MA TTHEW J 07/05 [facility] THERAPEUTI C PROCEDURES [id number] Diagnos is: ICD-10- CM Z71.89 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 ed food counselor pavan DELGADILLOJUAN CARLOSCHARY,ALL YSON P 07/05 [facility] Outpatient Encounter [id number] LINO BAI L 07/09 [facility] Outpatient Encounter [id number] LINO BAI ELYN L 07/09 [facility] GROUP THERAPEUTI C PROCEDURES [id number] Diagnos is: ICD-10- CM Z71.89 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 ed food counselor pavan CORDOBA,ALL YSON P 07/12 [facility] GROUP THERAPEUTI C PROCEDURES [id number] Diagnos is: ICD-10- CM 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 ADALID,ALL YSON P 07/16 [facility] GROUP THERAPEUTI C PROCEDURES [id number] [id number] Diagnos is: ICD-10- CM Z71.89 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 ed food counselor pavan ADALID,ALL YSON P 07/23 [facility] GROUP THERAPEUTI C PROCEDURES [id number] [id number] Diagnos is: ICD-10- CM 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 ADALID,ALL YSON P 07/30 [facility] OFFICE O/P EST LOW 20 MIN [id number] [id number] Diagnos is: ICD-10- CM L60.3 Nail dystrop hy JAGDEEP UART L 08/04 [facility] Outpatient Encounter [id number] 08/04 [facility] Outpatient Encounter [id number] 08/10 [facility] PH1 ASSMT&MGMT NQHP 5-10 71884-9.65 [id number] Diagnos is: ICD-10- CM Z71.89 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 ed food counselor pavan CORDOBA,ALL YSON P 09/02 [facility] DIVISION GROUP THERAPEUTI C PROCEDURES 82685-8.65 [id number] Diagnos is: ICD-10- CM Z71.89 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 ed food counselor pavan CORDOBA,ALL YSON P 09/03 [facility] DIV[facility] GROUP THERAPEUTI C PROCEDURES 02647-7.65 [id number] Diagnos is: ICD-10- CM Z71.89 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 ed food counselor pavan CORDOBA,ALL YSON P 09/10 [facility] DIVISION GROUP THERAPEUTI C PROCEDURES 96261-6.65 [id number] Diagnos is: ICD-10- CM Z71.89 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 ed food counselor pavan MURRYER,ALL YSON P 09/13 [facility] DIV[facility] N [facility] GROUP THERAPEUTI C PROCEDURES 61927-4.65 [id number] Diagnos is: ICD-10- CM 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 ELIENDER,ALL YSON P 09/17 [facility] DIV[facility] N [facility] DIVISION GROUP THERAPEUTI C PROCEDURES [id number] Diagnos is: ICD-10- CM 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 LOVELYER,ALL YSON P 09/20 [facility] DIVISIO N Procedures Combined list of: 1) Procedures from Department of Veterans Affairs facilities going back up to thelast 18 months, not all CT non-surgical procedures are included; 2) All procedures from the Department of Defense facilities. Procedure Procedure Type Code Date Perfomer Comments Sourc e None None (qualifier value) [id number] [place] Social History Combined list of available smoking, tobacco, and other social history from Department of Defense and Veterans Affairs facilities. Social History Type Response Date Comment Sourc e Tobacco smoking status MEIS VA-TOBACCO NEVER USED 11/19/2023 [facility] History of tobacco use VA-TOBACCO NEVER USED 04/09/2023 [facility] History of tobacco use VA-TOBACCO NEVER USED 12/28/2021 [facility] Sex Representation Male (finding) 02/18/2020 Un known Organization Tobacco Frequent/Daily exposure to secondhand smoke in indoor/confined spaces No. Cigarette use: Never-cigarette user. Other Tobacco use: Never-other tobacco user (not cigarettes). Ambulatory Pharmacy Sexual Orientation Ambula tory Pharmacy Gender identity Ambulator y Pharmacy Assessment and Plan Combined list of future care activities from Department of Defense and Veterans Affairs facilities (e.g., assessment and plan notes, appointments, orders, and referrals). Additional future care activities may be listed in the Plan of Care section. Result Assessment and Plan Date Source Assessment and Plan Extracted from:Title : Office Clinic Note Author: SEAN SAMSON MD Date: 10/17/23 1. P lantar fasciitis - Symptoms per HPI - Given at home PT along w/ formal PT referral for plantar fasciitis - Advised to wear insoles (Dr. Pisano's for LBP) w/ all shoes - If not happy w/ symptoms relief after 4-6 wks of PT will refer for [facility] Sean Samson MD PGY-1, Family Medicine Addendum by RUSTY RIVAS MD on October 20, 2023 08:05:47 CDT I certify that I was present for case discussion in the Family Medicine preceptor room at the time of this encounter. I have reviewed the note and agree with the findings, assessment, and plan except as I have documented below. Follow up as listed. All labs/imaging/consults to be followed by the ordering provider. Rusty Rivas MD, [facility], [facility], Staff Physician Extracted from:Title: 95 day f/u Rt. pinky P2 phalanx fx, Lt. hand contusion-MP Author: HENOK ROBLES PA Date: 12/16/22 Contusion of left hand Patient will continue OT for both injuries, we discussed potentially him using a home Paraffin Bath prior to his home exercise program for his hands. He will follow up on an as needed basis. 15 minutes spent on patient care. Right hand x-rays interpreted in the office today by me reveal a healed P2 phalanx fracture of the right pinky with acceptable alignment. Nondisplaced fracture of middle phalanx of right little finger, initial encounter for closed fracture Ordered: XR Hand Complete 3+ Views Right Extracted from:Title: Lt hand contusion/Rt. little finger P2 phalanx fx 67 day f/u-MP Author: HENOK ROBLES PA Date: 11/18/22 1. C ontusion of left hand Patient's left hypothenar eminence is improving. We will continue to observe this area and work up further if needed. 2. F racture of unspecified phalanx of right little finger, initial encounter for closed fracture Patient is still having some mild rotation of his right little finger toward the radial side with flexion of his PIP and DIP. He just started OT a couple weeks ago. We will refer him to a hand surgeon to get an opinion about treatment options. Patient will follow up in 1 month for reassessment. Repeat right hand x-rays at next visit. 15 minutes spent on patient care. Orders: XR Hand Complete 3+ Views Right 2 views on Mini-C-arm show no evidence of fracture, dislocation, or other complication on a wet read by me in the office. Extracted from:Title: Orthotic Note Author: HENOK ROJAS Stephane Date: 09/17/22 1. F racture of unspecified phalanx of unspecified finger, initial encounter for closed fracture Patient was fitted for (left medium) wrist splint provided by [employer]. Patient trained on proper wear and placement of splint. Patient trained to loosen straps/bands if symptoms of loss of circulation, tingling/numbness, or swelling of hand/fingers should occur. If symptoms persists, remove brace. Patient was fitted for (left medium) wrist splint provided by [employer]. Patient trained on proper wear and placement of splint. Patient trained to loosen straps/bands if symptoms of loss of circulation, tingling/numbness, or swelling of hand/fingers should occur. If symptoms persists, remove brace. Also if said symptoms occur if patient wears appliances at night, remove brace(s). Patient instructed to follow any restrictions/instructions given by PCM. TTS: 15 MINS CPT 19063 09/24/2024 [id number] [facility] Assessment and Plan Extracted from:Title : Office Clinic Note Author: SEAN SAMSON MD Date: 10/17/23 1. P lantar fasciitis - Symptoms per HPI - Given at home PT along w/ formal PT referral for plantar fasciitis - Advised to wear insoles (Dr. Umanzors for LBP) w/ all shoes - If not happy w/ symptoms relief after 4-6 wks of PT will refer for [facility] Sean Samson MD PGY-1, Family Medicine Addendum by RUSTY RIVAS MD on October 20, 2023 08:05:47 CDT I certify that I was present for case discussion in the Family Medicine preceptor room at the time of this encounter. I have reviewed the note and agree with the findings, assessment, and plan except as I have documented below. Follow up as listed. All labs/imaging/consults to be followed by the ordering provider. Rusty Rivas MD, [facility], [facility], Staff Physician Extracted from:Title: 95 day f/u Rt. pinky P2 phalanx fx, Lt. hand contusion-MP Author: HENOK ROBLES PA Date: 12/16/22 Contusion of left hand Patient will continue OT for both injuries, we discussed potentially him using a home Paraffin Bath prior to his home exercise program for his hands. He will follow up on an as needed basis. 15 minutes spent on patient care. Right hand x-rays interpreted in the office today by me reveal a healed P2 phalanx fracture of the right pinky with acceptable alignment. Nondisplaced fracture of middle phalanx of right little finger, initial encounter for closed fracture Ordered: XR Hand Complete 3+ Views Right Extracted from:Title: Lt hand contusion/Rt. little finger P2 phalanx fx 67 day f/u-MP Author: HENOK ROBLES PA Date: 11/18/22 1. C ontusion of left hand Patient's left hypothenar eminence is improving. We will continue to observe this area and work up further if needed. 2. F racture of unspecified phalanx of right little finger, initial encounter for closed fracture Patient is still having some mild rotation of his right little finger toward the radial side with flexion of his PIP and DIP. He just started OT a couple weeks ago. We will refer him to a hand surgeon to get an opinion about treatment options. Patient will follow up in 1 month for reassessment. Repeat right hand x-rays at next visit. 15 minutes spent on patient care. Orders: XR Hand Complete 3+ Views Right 2 views on Mini-C-arm show no evidence of fracture, dislocation, or other complication on a wet read by me in the office. Extracted from:Title: Orthotic Note Author: HENOK ROJAS Date: 09/17/22 1. F racture of unspecified phalanx of unspecified finger, initial encounter for closed fracture Patient was fitted for (left medium) wrist splint provided by [employer]. Patient trained on proper wear and placement of splint. Patient trained to loosen straps/bands if symptoms of loss of circulation, tingling/numbness, or swelling of hand/fingers should occur. If symptoms persists, remove brace. Patient was fitted for (left medium) wrist splint provided by [employer]. Patient trained on proper wear and placement of splint. Patient trained to loosen straps/bands if symptoms of loss of circulation, tingling/numbness, or swelling of hand/fingers should occur. If symptoms persists, remove brace. Also if said symptoms occur if patient wears appliances at night, remove brace(s). Patient instructed to follow any restrictions/instructions given by PCM. TTS: 15 MINS CPT 03450 09/24/2024 [id number] [place] Plan of Care List of future care activities from Department of Veterans Affairs facilities. Additional future care activities may be listed in the Assessment and Plan section. Date/Time Care Activity Care Activity Detail Facili ty 09/24/2024 AMBULATORY - NONE AMBULATORY - NONE [facility] Advance Directives List of completed, amended, or rescinded Advance Directives on record at Department of Veterans Affairs facilities. An actual copy of the Directive is not included. Date Advance Directive Provider Source 12/28/2021 [facility] DIRECTIVE DIS[facility] Functional Status Combined list of recent functional and cognitive assessments recorded at Department of Defense and Veterans Affairs ([facility]).[facility] Functional [place] Measurement (FIM) Scale: 1 = Total Assistance (Subject = 0% +), 2 = Maximal Assistance (Subject = 25% +), 3 = Moderate Assistance (Subject = 50% +), 4 = Minimal Assistance (Subject = 75% +), 5 = Supervision, 6 = Modified [place] (Device), 7 = Complete [place] (Timely, Safely). Assessment Date/Time Source Assessment Type Assessment Skill Assessment Score Assessment Details No data available for this section
--- OUTSIDE RECORDS SUMMARY | 2024-09-24 00:58 | XMS_ITS | Encounter Summary ---
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 information given. -[facility] chiropractor consult placed. Pes planus/Plantar fasciitis: -Foot exam completed today. -Bilateral x-rays ordered. Once completed plan to consult [place] podiatry. Tinnitus: -Audiology contact information given. -Educated to avoid loud noises, avoid cotton swabs and to keep ears dry. RETURN TO CLINIC: 1 year or earlier as needed. SUMMARY STATEMENT: Plan of care has been discussed with including expected therapeutic benefits and potential side effects of prescribed medication and treatments. verbalizes understanding and is in agreement with the plan of care. Patient was instructed to keep all scheduled appointments and contact bi lead for any additional problems. Toxic Exposure Screening Follow-Up: Exposure Concern(s): 11/19/2023 Other Environmental Concerns - Toxic Exposure Concern fuels Follow-up Question(s): 11/19/2023 No Questions - Toxic Exposure Concern [place] declines further assistance at this time. HIV Screening (Routine): Patient has given verbal consent for HIV antibody testing, and written educational materials have been provided. An order for an HIV Antibody test has been entered - see orders tab. Hepatitis C Testing: Patient has given verbal consent for HCV antibody testing. An HCV lab test has been ordered - see orders tab. Screen for Embedded Fragments: SCREEN FOR EMBEDDED FRAGMENTS The patient reports no embedded fragments. 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 The has already been diagnosed as having TBI during post 02/17 deployment. Screening not required due to TBI diagnosis. A consult for known TBI was entered. PAVE Foot Check: A complete foot check was completed at this encounter. VISUAL INSPECTION: Includes inspection for skin breaks, deformity, erythema, trauma, pallor on elevation, dependent rubor, nail deformities, extensive callus and pitting edema. Visual exam results: Normal PEDAL PULSES: Includes palpation of dorsalis and posterior tibial pulses and signs/symptoms of vascular compromise like pain, pallor, parasthesia or paralysis. Present (even if diminished) SENSORY CHECK: Includes 10 gram Monofilament ([place]-Yvonne) test of sensation. Intact (Greater than or equal to 80% of sites checked) Abnormal (Less than 80% of sites checked): Intact LOW-RISK: LOW RISK INFORMATION PROVIDED: 1. Advised patient not to walk barefoot. 2. Explained the importance of daily foot checks for changes. 3. Stressed the importance of daily foot hygiene, including bathing and complete drying. The patient verbalized understanding and was offered a detailed handout on diabetic foot care. Avg Risk Colorectal Cancer Screen: AVERAGE RISK colorectal cancer screening is due based on information available to this clinical reminder A new due date is necessary. Justification: This is when patient due for [facility] Average risk screening reminder set 4 years from NOV 19, 2023. /rita/ Gricelda Perez DNP, HEEL NAIL RASPER, POST OFFICE MARKUP CLERK-C Primary Care Nurse Practitioner Signed: 11/19/2023 11:38 11/21/2023 ADDENDUM STATUS: COMPLETED Will mail result letter to patient. [facility] podiatry consult placed. Exam Date/Time 11/21/2023 14:25 Procedure Name FOOT,RIGHT,3 VIEWS OR MORE Reason for Study Foot pain Impression: There are bilateral plantar heel spurrings. 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 No acute displaced fracture. No significant malalignment. Exam Date/Time 11/21/2023 14:25 Procedure Name FOOT,LEFT 3 VIEWS OR MORE Reason for Study Foot pain Impression: There are bilateral plantar heel spurrings. 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 No acute displaced fracture. No significant malalignment. /rita/ Gricelda Perez DNP, HEEL NAIL RASPER, POST OFFICE MARKUP CLERK-C Primary Care Nurse Practitioner Signed: 11/21/2023 19:13 12/15/2023 ADDENDUM STATUS: COMPLETED Labs reviewed: CBC, CMP, A1C, Lipid panel, Vitamin D, TSH, Hepatitis C and HIV (non-fasting). Will mail result letter to patient. #Vitamin D deficiency: VITAMIN D, 25-HYDROXY 28.7 L ng/mL 30 - 96 -Begin Vitamin D 25 mcg daily. Will mail to patient. /rita/ Gricelda Perez DNP, JONNY, POST OFFICE MARKUP CLERK-C Primary Care Nurse Practitioner Signed: 12/15/2023 18:22 GRICELDA PEREZ [facility] Nov 19, 2023 08:24 AM NURSING NOTE: LOCAL TITLE: V15 PACT FACE TO FACE NOTE ST STANDARD TITLE: NURSING NOTE DATE OF NOTE: NOV 19, 2023@08:24 ENTRY DATE: NOV 19, 2023@08:24:25 AUTHOR: JEREMY JEFFERSON COSIGNER: URGENCY: STATUS: COMPLETED Provider Visit: Patient Identifiers : Full Name Date of Reason for visit: New Patient Do you have a history of any of the following? (check all that apply): Cancer, Other:pre-cancer spots-ear, nose head Surgeries (type(s) and date(s)): appendectomy-2011 Have you been seen by a physician, [place] or private, in the last year? Yes Name and contact information for provider: [email or web address]-[id number] pain Have you been hospitalized or seen in an ER in the last year? No Have you had a colonoscopy previously? Yes What location and approximate date(s)? 6 months Records request sent: Have you had a PAP smear previously? N/A Have you had a Mammogram previously? No Mode of Arrival: Ambulatory Allergy Review: No Allergy Assessment Allergy list reviewed and remains current. Recent Vital Signs: Temperature: 98.3 F [36.8 C] (11/19/2023 08:19) Pulse: 55 (11/19/2023 08:19) Respiration: 18 (11/19/2023 08:19) B/P: 110/69 (11/19/2023 08:19) Pain: 4 (11/19/2023 08:19) Wt: 189 lb [85.73 kg] (11/19/2023 08:19) Ht: 68 in [172.7 cm] (11/19/2023 08:19) BMI: 28.8 POX: 97% (11/19/2023 08:19) Would you like to discuss any personal problem, family problem, alcohol use, drug use, or a mental or emotional illness? No [facility] ([facility]), please select appointment type: [place] Video Connect (VVC) - Are you registered for [facility]? Yes - done Contact provided Primary Care phone number and encouraged to call if any questions or concerns. Review that after hours nurse line [phone] and emergency room are available 30/12 for patient use. Contact verbalized good understanding. Suicide Screen: C-SSRS Screening [place]-Suicide Severity Rating Scale (C-SSRS Screener) 1. Over the past month, have you wished you were or wished you could go to sleep and not wake up? No 2. Over the past month, have you had any actual thoughts of killing yourself? No 3. Over the past month, have you been thinking about how you might do this? Response not required due to responses to other questions. 4. Over the past month, have you had these thoughts and had some intention of acting on them? Response not required due to responses to other questions. 5. Over the past month, have you started to work out or worked out the details of how to kill yourself? Response not required due to responses to other questions. 6. If yes, at any time in the past month did you intend to carry out this plan? Response not required due to responses to other questions. 7. In your lifetime, have you ever done anything, started to do anything, or prepared to do anything to end your life (for example, collected pills, obtained a gun, gave away valuables, went to the roof but didn't jump)? No 8. If YES, was this within the past 3 months? Response not required due to responses to other questions. Toxic Exposure Screening: The /caregiver was asked if they believe the experienced any toxic exposure(s), such as Airborne Hazards and [place], [place] War related exposures, Agent [place], Radiation, contaminated water at [place] or other such exposures, while serving in the Armed Forces. /caregiver believes the [place] was exposed to the following while serving in the Armed Forces: Other exposures: Comment: fuels /caregiver was made aware of educational resources and printed information was offered and provided if desired. No questions at this time [place]/caregiver was informed of local points of contact. Contact information for local resources: [facility] Registry Exam Program: [phone] Eligibility: [phone] [id number] Toxic Exposure Screening Follow-Up reminder is needed. Name of person notified: gricelda perez COVID-19 Immunization: Refused Moderna Monovalent COVID-19 vaccine Immunization: COVID-19 (MODERNA), MRNA, LNP-S, PF, 50 MCG/0.5 ML (AGES 12+ YEARS) Refusal Reason: PATIENT DECISION Patient refuses all immunization(s) in the COVID-19 group Date Documented: 11/19/23 08:31 Alcohol Use Screen (AUDIT-C): Alcohol Screen: SCREEN FOR ALCOHOL (AUDIT-C) An alcohol screening test (AUDIT-C) was negative (score=2). 1. How often did you have a drink containing alcohol in the past year? Consider a drink to be a 12 ounce can or bottle of regular beer, 8 ounces of malt liquor, a 5 ounce glass of table wine, or a 1.5 ounce shot of liquor (like scotch, gin, or vodka). Two to four times a month 2. How many drinks containing alcohol did you have on a typical day when you were drinking in the past year? One or two drinks 3. How often did you have six or more drinks on one occasion in the past year? Never Depression Screening: Perform PHQ-2 A PHQ-2 screen was performed. The score was 0 which is a negative screen for depression. Over the past two weeks, how often have you been bothered by the following problems? 1. Little interest or pleasure in doing things Not at all 2. Feeling down, depressed, or hopeless Not at all Homelessness/Food Insecurity Screen: In the past 2 months, have you been living in stable housing that you own, rent, or stay in as part of a household? Yes - Living in stable housing. Are you worried or concerned that in the next 2 months you may NOT have stable housing that you own, rent, or stay in as part of a household? No - Not worried about housing near future The [place] reports the following: Within the past 12 months, you worried whether your food would run out before you got money to buy more. Never true Within the past 12 months, the food you bought just didn't last and you didn't have money to get more. Never true PTSD Screening: PC-PTSD-5 A PTSD screening test (PC-PTSD-5) was negative (score=0). IN THE PAST MONTH, have you ever had any experience that was so frightening, horrible or traumatic. For example: A serious accident or fire a physical or sexual assault or abuse An earthquake or flood A war Seeing someone be killed or seriously injured Having a loved one through homicide or suicide 1. Have you ever experienced this kind of event? NO 2. Had nightmares about the event(s) or thought about the event(s) when you did not want to? Response not required due to responses to other questions. 3. Tried hard not to think about the event(s) or went out of your way to avoid situations that reminded you of the event(s)? Response not required due to responses to other questions. 4. Been constantly on guard, watchful, or easily startled? Response not required due to responses to other questions. 5. [place] numb or detached from people, activities, or your surroundings? Response not required due to responses to other questions. 6. [place] guilty or unable to stop blaming yourself or others for the event(s) or any problems the event(s) may have caused? Response not required due to responses to other questions. Learning Assessment: - * This patient's learning ABILITIES, BARRIERS to learning, CULTURAL and RELIGION beliefs, and learning PREFERENCES were assessed. Following are findings of note: Patient reads well. Patient has the following hearing/auditory barrier(s) to consider when teaching: No hearing barrier identified. Patient has the following speech barrier to consider when teaching: No speech barrier identified. LANGUAGE Patient reports that Spanish is preferred language for healthcare. Patient has the following language barrier to consider when teaching: No language barrier has been identified. Patient has the following vision barrier(s) to consider when teaching: Requires glasses/contacts for reading Patient has the following dexterity/mobility barrier(s) to consider when teaching: Otherfoot pain Patient has the following cognitive/memory barrier(s) to consider when teaching: No cognitive/memory barrier has been identified. Patient has the following emotional/psychological barrier(s) to consider when teaching: No emotional/psychosocial barrier has been identified. Tobacco Use Screening: The patient has never used tobacco. Tdap Immunization: Td/Tdap given previously - written records available The patient has previously received the Tetanus, Diphtheria, Pertussis vaccine (Tdap). Documented: TDAP Historical Date Administered: Mar 13, 2017 Outside Location: dod Information Source: FROM PATIENT'S WRITTEN RECORD COVID-19 Immunization: Patient received a prior dose of the Pfizer Monovalent vaccine. Documented: COVID-19 (PFIZER), MRNA, LNP-S, PF, PHANI-SUCROSE, 30 MCG/0.3 ML (AGES 12+ YEARS) Historical Date Administered: Sep 11, 2020 Outside Location: dod Information Source: FROM PATIENT'S WRITTEN RECORD COVID-19 Immunization: Patient received a prior dose of the Pfizer Monovalent vaccine. Documented: COVID-19 (PFIZER), MRNA, LNP-S, PF, PHANI-SUCROSE, 30 MCG/0.3 ML (AGES 12+ YEARS) Historical Date Administered: Aug 21, 2020 Outside Location: dod Information Source: FROM PATIENT'S WRITTEN RECORD /rita/ JEREMY JEFFERSON LPN LICENSED PRACITCAL NURSE Signed: 11/19/2023 08:43 JEREMY JEFFERSON [facility]
--- OUTSIDE RECORDS SUMMARY | 2024-09-24 00:58 | XMS_ITS | Encounter Summary ---
Author Name [facility] of [facility] [place] Organization [facility] of [facility] [place] Address [address] [place] [address] Care Team Providers Care Chief Of Service Name Role Phone WALTER EMILIO Primary Care [...] RE DODA WNR Jan 14, 2024 DODA [id number] Julianna JAVED PATIENT [facility] 2024 [facility] RETIR ED Jun 09, 2024 PRIME RETIRED [id number] [phone] Julianna JAVED PATIENT [facility] 2024 PRIME WNR Jun 09, 2024 PRIME [id number] [phone] Julianna JAVED PATIENT Selected Encounter This section includes the information on record at [place] for the Encounter. Date/Time Encounter Type Encounter Description Reason Provider Source Apr 13, 2024 11:20 AM MANUAL THERAPY 1/> [facility] FORENSIC ANALYST ICD-10-CM M54.50 Low back pain, unspecified MARCELLA LIND IHE Encounter Template Text not used by [place] Assessments - Encounter Diagnoses This section includes the primary and secondary diagnoses documented for the Encounter. Date/Time Primary/Secondary Diagnosis Diagnosis Name Provider Source Apr 13, 2024 11:36 AM PRIMARY Low back pain, unspecified TERRANCE LIND Miguelina [place] [facility] Apr 13, 2024 11:36 AM SECONDARY Cervicalgia TERRANCE LIND [facility] Apr 13, 2024 11:36 AM SECONDARY Myalgia, other site TERRANCE LIND [facility] Plan of Treatment: Future Appointments (+ 6 months) and Future Tests (+/- 45 days) The Plan of Treatment section includes future care activities for the patient from all [place] [facility]. This section includes future appointments and future orders which are active, pending or scheduled. Future Appointments This section includes appointments that were scheduled to occur 6 months from the date of the Encounter, up to a maximum of 20 appointments. The data comes from all [place] treatment facilities. Appointment Date/Time Appointment Type Appointme nt Facility Name May 11, 2024 11:40 AM AMBULATORY - NONE [facility] May 25, 2024 08:00 AM AMBULATORY - NONE [facility] Jun 03, 2024 01:30 PM AMBULATORY - NONE [facility] Jun 14, 2024 06:30 PM AMBULATORY [facility] NONE [facility] Jun 21, 2024 06:30 PM AMBULATORY - NONE [facility] Jul 05, 2024 09:00 AM AMBULATORY - NONE [facility] Jul 05, 2024 06:30 PM AMBULATORY - NONE [facility] Jul 12, 2024 06:30 PM AMBULATORY - NONE [facility] Jul 16, 2024 07:30 AM AMBULATORY - NONE [facility] Jul 23, 2024 07:30 AM AMBULATORY - NONE [facility] Jul 30, 2024 07:30 AM AMBULATORY - NONE [facility] Aug 04, 2024 07:30 AM AMBULATORY - SURGERY [facility] Sep 10, 2024 07:30 AM AMBULATORY - NONE [facility] Sep 13, 2024 02:00 PM AMBULATORY - NONE [facility] Sep 17, 2024 07:30 AM AMBULATORY - NONE [facility] Sep 20, 2024 02:00 PM AMBULATORY - NONE [facility] Sep 24, 2024 07:30 AM AMBULATORY - NONE [facility] Sep 27, 2024 02:00 PM AMBULATORY - NONE [facility] Sep 27, 2024 03:00 PM AMBULATORY - SURGERY [facility] Jose Daniel [facility] Oct 01, 2024 07:30 AM AMBULATORY - NONE [facility] Social History: Smoking Status (Most current) and Tobacco Use (All prior to encounter date) This section includes the most current, and the historical, smoking and tobacco- related health factors from the [place] facility where the Encounter took place. Current Smoking Status This section includes the most current smoking, or tobacco-related health factor, from the [place] facility where the Encounter took place. Date/Time Current Smoking Status Comment Facil ity Nov 19, 2023 08:30 AM VA-TOBACCO NEVER USED [facility] Advance Directives: All historical and current Section Date Range: From patient's date of to the date document was created. This section includes ALL of a patient's completed or amended [place] Advance and Rescinded Directives. The entries below indicate that a directive exists for the patient, but an actual copy is not included with this document. The data comes from all [place] facilities. Date Advance Directives Provider Source Dec 28, 2021 ADVANCE DIRECTIVE DISCUSSION PHYLLIS GUPTA [facility] Encounter Notes: All associated encounter notes This section contains the clinical notes associated to the Encounter. Date/Time Encounter Note(s) Provider Source Apr 13, 2024 07:59 AM CHIROPRACTIC NOTE: LOCAL TITLE: CHIROPRACTIC [facility] F/U [facility] STANDARD TITLE: CHIROPRACTIC NOTE DATE OF NOTE: APR 13, 2024@07:59 ENTRY DATE: APR 13, 2024@07:59:15 AUTHOR: TERRANCE LIND COSIGNER: URGENCY: STATUS: COMPLETED SUBJECTIVE: [place] presents to follow up chiropractic visit with back and neck pain. rates their back and neck pain as a 4/10 today. [place] notes majority of their pain presenting at the lower right side of back. [place] reports mild pain relief from doing home exercises and stretches. denies numbness or tingling into the legs and arms. finds benefit in career center advisor and agrees to proceed with career center advisor today. GOALS: Improve mobility, decrease pain when transitioning [...] with no difficulty OBJECTIVE/PALPATION: Taut and tender cervical and thoracolumbar [...] SIJ chiropractic manipulation. Manual therapy consisting of table assisted pin and stretch of thoracolumbar paraspinals and quadratus lumborum muscles. Cross friction massage rhomboids, upper trapezius and levator scapula muscles. Manual therapy 9 minutes. The patient reported feeling much better following their treatment. Treatment rendered without incident. HOME CARE: Kneeling thoracic mobility 5 reps 3-4 times daily, cervical retractions 5 reps 3-4 times daily RTC:4-6 wks /es/ TERRANCE LIND [facility] Chiropractic Physician Signed: 04/13/2024 11:44 TERRANCE LIND [facility]
--- OUTSIDE RECORDS SUMMARY | 2024-09-24 00:58 | XMS_ITS | Encounter Summary ---
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 Date/Time Encounter Type Encounter Description Reason Provider Source Jan 12, 2024 03:00 PM HLTH&WB COACHING INDIV 1[facility] HEALTH/WELLBEING SRVS ICD-10-CM Z71.89 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ed counseling ISIDRO,EV AN IHE Encounter Template Text not used by CT Assessments - Encounter Diagnoses This section includes the primary and secondary diagnoses documented for the Encounter. Date/Time Primary/Secondary Diagnosis Diagnosis Name Provider Source Jan 12, 2024 04:03 PM PRIMARY 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ed counseling TIANA ISIDRO Miguelina WOOD [facility] Plan of Treatment: Future Appointments (+ 6 months) and Future Tests (+/- 45 days) The Plan of Treatment section includes future care activities for the patient from all [place] treatmentfacilities. This section includes future appointments and future orders which are active, pending or scheduled. Future Appointments This section includes appointments that were scheduled to occur 6 months from the date of the Encounter, up to a maximum of 20 appointments. The data comes from all [place] treatment facilities. Appointment Date/Time Appointment Type Appointme nt Facility Name Jan 20, 2024 11:20 AM AMBULATORY - NONE [facility] Feb 19, 2024 11:20 AM AMBULATORY - NONE [facility] Oliveros [facility] Mar 01, 2024 10:30 AM [facility] Mar 11, 2024 11:00 AM AMBULATORY - NONE [facility] Apr 13, 2024 11:20 AM AMBULATORY - NONE [facility] May 11, 2024 11:40 AM AMBULATORY - NONE [facility] SA[facility] R [facility] May 25, 2024 08:00 AM AMBULATORY - NONE [facility] Jun 03, 2024 01:30 PM AMBULATORY - NONE [facility] Jun 14, 2024 06:30 PM AMBULATORY - NONE [facility] Jun 21, 2024 06:30 PM AMBULATORY - NONE [facility] Jul 05, 2024 09:00 AM AMBULATORY - NONE [facility] Jul 05, 2024 06:30 PM AMBULATORY - NONE [facility] Jul 12, 2024 06:30 PM AMBULATORY - NONE [facility] Social History: Smoking Status (Most current) and Tobacco Use (All prior to encounter date) This section includes the most current, and the historical, smoking and tobacco- related health factors from the [place] facility where the Encounter took place. Current Smoking Status This section includes the most current smoking, or tobacco-related health factor, from the [place] facility where the Encounter took place. Date/Time Current Smoking Status Comment Facil ity Nov 19, 2023 08:30 AM VA-TOBACCO NEVER USED [facility] Advance Directives: All historical and current Section Date Range: From patient's date of to the date document was created. This section includes ALL of a patient's completed or amended [place] Advance and Rescinded Directives. The entries below indicate that a directive exists for the patient, but an actual copy is not included with this document. The data comes from all [place] facilities. Date Advance Directives Provider Source Dec 28, 2021 ADVANCE DIRECTIVE DISCUSSION PHYLLIS GUPTA [facility] Encounter Notes: All associated encounter notes This section contains the clinical notes associated to the Encounter. Date/Time Encounter Note(s) Provider Source Jan 12, 2024 03:09 PM INTEGRATIVE HEALTH NOTE: LOCAL TITLE: HEALTH AND WELLNESS COACHING STANDARD TITLE: INTEGRATIVE HEALTH NOTE DATE OF NOTE: JAN 12, 2024@15:09 ENTRY DATE: JAN 12, 2024@15:09:48 AUTHOR: SHEEBA ISIDROIGNER: URGENCY: STATUS: COMPLETED Health and Wellness Coaching HEALTH AND WELLNESS COACHING VISIT *Type of Visit: contacted using Video Telehealth. Patient Contact Details: Best contact number for backup/emergency communication with patient: Patient Location/Surroundings During Visit: Patient location during visit: Home [address] [place] [id number] Patient confirms location is safe and private for visit. Telehealth Disclosure: Visit conducted by synchronous telehealth. Patient verbal consent obtained. Location/emergency number confirmed. Environment surveyed and all participants identified. Virtual conference room locked. *Session number: 1 Time spent with : 30-60 minutes Health and Wellness Coaching Agreement was discussed and agreed to by [facility] and process coach. Well-Being Signs (WBS) reviewed. Well-Being Signs Well-Being Signs (WBS) WBS Average Score: 8.67 Questions and Answers: Over the past month, on average how often have you been: 1. Fully satisfied with how these things are going? 9 2. Regularly involved in things that are important to you? 9 3. Functioning your best in the most important things you do? 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 Goals: [facility]'s S.M.A.R.T. goal(s): [facility] set a new S.M.A.R.T. goal(s) of: Goal 1: Call to schedule yoga via [facility] ADDITIONAL SESSION INFORMATION [facility] is interested in referral to: Yoga Additional information (e.g. 's self-identified strengths, Values, Vision for the Future): and staff were able to meet for first time, during this session staff was ablet o answer questions from intro and about Whole Health Offerings. [facility] and staff also reviewed PHI, conducted WBS, and covered future plans for health and wellness. Lilo is newer to [facility] and still meeting people to get out and go on bike rides with. Lilo stated he would like to start yoga to help with mobility and flexibility. will call to self-schedule yoga, [facility] Scheduling number. 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
--- OUTSIDE RECORDS SUMMARY | 2024-09-24 00:58 | XMS_ITS | Encounter Summary ---
Author Name [facility] [place] Organization [facility] [place] Address [address] [place] [address] Care Team Providers Care Education Spec Name Role Phone WALTER EMILIO Primary Care [...] RE DODA WNR Jan 14, 2024 DODA [id number] [phone] Julianna JAVED PATIENT [facility] 2024 PRIME RETIR ED Jun 09, 2024 PRIME RETIRED [id number] [phone] Julianna JAVED PATIENT [facility] 2024 PRIME WNR Jun 09, 2024 PRIME [id number] [phone] Julianna JAVED PATIENT Selected Encounter This section includes the information on record at [place] for the Encounter. Date/Time Encounter Type Encounter Description Reason Provider Source Feb 19, 2024 11:20 AM MANUAL THERAPY 1/> [facility] [employer] FOLLOW UP REPRESENTATIVE ICD-10-CM M54.50 Low back pain, unspecified MARCELLA LIND IHE Encounter Template Text not used by [place] Assessments - Encounter Diagnoses This section includes the primary and secondary diagnoses documented for the Encounter. Date/Time Primary/Secondary Diagnosis Diagnosis Name Provider Source Feb 19, 2024 11:44 AM PRIMARY Low back pain, unspecified TERRANCE LIND [facility] Feb 19, 2024 11:44 AM SECONDARY Cervicalgia TERRANCE LIND [facility] Feb 19, 2024 11:44 AM SECONDARY Myalgia, other site TERRANCE LIND [facility] Plan of Treatment: Future Appointments (+ 6 months) and Future Tests (+/- 45 days) The Plan of Treatment section includes future care activities for the patient [facility] [place] [facility] This section includes future appointments and future orders which are active, pending or scheduled. Future Appointments This section includes appointments that were scheduled to occur 6 months from the date of the Encounter, up to a maximum of 20 appointments. The data comes from all [place] treatment facilities. Appointment Date/Time Appointment Type Appointme nt Facility Name Mar 01, 2024 10:30 AM AMBULATORY - MEDICINE [facility] Mar 11, 2024 11:00 AM AMBULATORY - NONE [facility] Apr 13, 2024 11:20 AM AMBULATORY - NONE [facility] May 11, 2024 11:40 AM AMBULATORY - NONE [facility] May 25, 2024 08:00 AM AMBULATORY - NONE [facility] Jun 03, 2024 01:30 PM AMBULATORY - NONE [facility] Jun 14, 2024 06:30 PM AMBULATORY - NONE [facility] Jun 21, 2024 06:30 PM AMBULATORY - NONE [facility] Jul 05, 2024 09:00 AM AMBULATORY - NONE [facility] Jul 05, 2024 06:30 PM AMBULATORY - NONE [facility] Jul 12, 2024 06:30 PM AMBULATORY - NONE [facility] Jul 16, 2024 07:30 AM AMBULATORY - NONE [facility] Jul 23, 2024 07:30 AM AMBULATORY - NONE [facility] Potts [facility] Jul 30, 2024 07:30 AM AMBULATORY - NONE [facility] FERREIRA [facility] Aug 04, 2024 07:30 AM AMBULATORY - SURGERY [facility] Jose Daniel [facility] Social History: Smoking Status (Most current) and Tobacco Use (All prior to encounter date) This section includes the most current, and the historical, smoking and tobacco- related health factors from the [place] facility where the Encounter took place. Current Smoking Status This section includes the most current smoking, or tobacco-related health factor, from the [place] facility where the Encounter took place. Date/Time Current Smoking Status Comment Facil ity Nov 19, 2023 08:30 AM VA-TOBACCO NEVER USED Miguelina WOOD [facility] Advance Directives: All historical and current Section Date Range: From patient's date of to the date document was created. This section includes ALL of a patient's completed or amended [place] Advance and Rescinded Directives. The entries below indicate that a directive exists for the patient, but an actual copy is not included with this document. The data comes from all [place] facilities. Date Advance Directives Provider Source Dec 28, 2021 ADVANCE DIRECTIVE DISCUSSION PHYLLIS GUPTA [facility] Encounter Notes: All associated encounter notes This section contains the clinical notes associated to the Encounter. Date/Time Encounter Note(s) Provider Source Feb 19, 2024 07:37 AM CHIROPRACTIC NOTE: LOCAL TITLE: CHIROPRACTIC [facility] F[facility]U [facility] STANDARD TITLE: CHIROPRACTIC NOTE DATE OF NOTE: FEB 19, 2024@07:37 ENTRY DATE: FEB 19, 2024@07:37:12 AUTHOR: TERRANCE LIND COSIGNER: URGENCY: STATUS: COMPLETED SUBJECTIVE: Patient presents today for follow-up visit regarding pain complaints. 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 He describes his causes back to pain to increase and feel more stiff at the end of the day. Since previous visit able to go bike riding approximately 35 miles. GOALS: Improve mobility, decrease pain when transitioning [...] no difficulty OBJECTIVE/PALPATION: Taut and tender rhomboids, lumbar paraspinals and quadratus lumborum. RESTRICTIONS: thoracic, lumbar, SIJ ASSESSMENT: Patient is a pleasant 49-year-old [...] exam. The benefits, risks and alternatives to clinical care coordinator were discussed with the patient, along with an opportunity to ask questions. Patient then gave an informed consent to treatment. Plan of care will consist of 4-6 visits consisting of chiropractic manipulation with an incremental increase in home exercise depending on the patients response. The patient agrees to this plan. Treatment consisted of flexion distraction lumbar spine, supine manipulation thoracic spine, side-lying manipulation lumbar and SIJ. Manual therapy consisting of table assisted pin and stretch thoracolumbar paraspinals and quadratus lumborum. Cross friction massage rhomboids, upper traps and levator scapula. Manual therapy 9 minutes. Patient instructed in and performed lumbar extension exercises, encouraged use when in sustained flexion for long periods of time. The patient reported feeling much better following their treatment. Treatment rendered without incident. HOME CARE: Kneeling thoracic mobility 5 reps 3-4 times daily, cervical retractions 5 reps 3-4 times daily RTC: 3 to 4 wks /es/ TERRANCE LIND [facility] Chiropractic Physician Signed: 02/19/2024 11:44 TERRANCE LIND [facility]
--- OUTSIDE RECORDS SUMMARY | 2024-09-24 00:58 | XMS_ITS | Encounter Summary ---
Author Name [facility] ([place]) Organization [facility] of [facility] [place] Address [address] [place] [address] Care Team Providers Care Chief Innovation Officer Name Role Phone WALTER EMILIO Primary Care [...] RE DODA WNR Jan 14, 2024 DODA [id number] [phone] Julianna JAVED PATIENT [facility] 2024 PRIME RETIR ED Jun 09, 2024 PRIME RETIRED [id number] [phone] Julianna JAVED PATIENT [facility] 2024 PRIME WNR Jun 09, 2024 PRIME [id number] [phone] Julianna JAVED PATIENT Selected Encounter This section includes the information on record at [place] for the Encounter. 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 Date/Time Primary/Secondary Diagnosis Diagnosis Name Provider Source Jan 20, 2024 11:39 AM PRIMARY Low back pain, unspecified TERRANCE LIND [facility] Jan 20, 2024 11:39 AM SECONDARY Cervicalgia TERRANCE LIND [facility] Jan 20, 2024 11:39 AM SECONDARY Myalgia, other site TERRANCE LIND [facility] Plan of Treatment: Future Appointments (+ 6 months) and Future Tests (+/- 45 days) The Plan of Treatment section includes future care activities for the patient [facility] [place] [facility] This section includes future appointments and future orders which are active, pending or scheduled. Future Appointments This section includes appointments that were scheduled to occur 6 months from the date of the Encounter, up to a maximum of 20 appointments. The data comes from all [place] treatment facilities. Appointment Date/Time Appointment Type Appointme nt Facility Name Feb 19, 2024 11:20 AM AMBULATORY - NONE [facility] Mar 01, 2024 10:30 AM AMBULATORY - MEDICINE . [place] [facility] Mar 11, 2024 11:00 AM AMBULATORY - NONE [facility] Apr 13, 2024 11:20 AM AMBULATORY - NONE [facility] May 11, 2024 11:40 AM AMBULATORY - NONE [facility] May 25, 2024 08:00 AM AMBULATORY - NONE [facility] Jun 03, 2024 01:30 PM AMBULATORY - NONE [facility] Jun 14, 2024 06:30 PM AMBULATORY [facility] NONE [facility] Jun 21, 2024 06:30 PM AMBULATORY - NONE [facility] Jul 05, 2024 09:00 AM AMBULATORY - NONE [facility] Jul 05, 2024 06:30 PM AMBULATORY - NONE [facility] Jul 12, 2024 06:30 PM AMBULATORY - NONE [facility] Jul 16, 2024 07:30 AM AMBULATORY - NONE [facility]A [facility] Social History: Smoking Status (Most current) and Tobacco Use (All prior to encounter date) This section includes the most current, and the historical, smoking and tobacco- related health factors from the [place] facility where the Encounter took place. Current Smoking Status This section includes the most current smoking, or tobacco-related health factor, from the [place] facility where the Encounter took place. Date/Time Current Smoking Status Comment Enid daniels Nov 19, 2023 08:30 AM VA-TOBACCO NEVER USED [facility] Advance Directives: All historical and current Section Date Range: From patient's date of to the date document was created. This section includes ALL of a patient's completed or amended [place] Advance and Rescinded Directives. The entries below indicate that a directive exists for the patient, but an actual copy is not included with this document. The data comes from all [place] facilities. Date Advance Directives Provider Source Dec 28, 2021 ADVANCE DIRECTIVE DISCUSSION PHYLLIS GUPTA [facility] Encounter Notes: All associated encounter notes This section contains the clinical notes associated to the Encounter. Date/Time Encounter Note(s) Provider Source Jan 20, 2024 07:54 AM CHIROPRACTIC NOTE: LOCAL TITLE: CHIROPRACTIC [place] [facility]/U [facility] STANDARD TITLE: CHIROPRACTIC NOTE DATE OF NOTE: JAN 20, 2024@07:54 ENTRY DATE: JAN 20, 2024@07:54:07 AUTHOR: TERRANCE LIND COSIGNER: URGENCY: STATUS: COMPLETED SUBJECTIVE: Patient presents today for follow-up visit regarding upper and lower back pain. He notes lately has been feeling a bit stiff/aggravated relates to sitting on neighbors patio and twisted position for extended periods of time. Since previous visit was able to go trail riding. Denies radicular symptoms in upper and lower extremity. Has not been able to use stretches as he forgot about them and would like to review today. Since previous visit met with [employer] technology coach has contact information to schedule yoga, has not done so yet. GOALS: Improve mobility, decrease pain when transitioning [...] difficulty OBJECTIVE/PALPATION: Taut and tender rhomboids, upper traps, taut and tender thoracic and lumbar paraspinals. RESTRICTIONS: CT junction, thoracic, lumbar, SIJ ASSESSMENT: Patient is a pleasant 48-year-old male [...] exam. The benefits, risks and alternatives to customer care consultant were discussed with the patient, along with [...] and levator scapula. Manual therapy 9 minutes. Reviewed cervical retractions, kneeling thoracic mobility Therapeutic exercise 5 minutes. The patient reported feeling much better following their treatment. Treatment rendered without incident. HOME CARE: Kneeling thoracic mobility 5 reps 3-4 times daily, cervical retractions 5 reps 3-4 times daily RTC: 3 to 4 wks /es/ TERRANCE LIND [facility] Chiropractic Physician Signed: 01/20/2024 11:40 TERRANCE LIND [facility]
--- OUTSIDE RECORDS SUMMARY | 2024-09-24 00:58 | XMS_ITS | Encounter Summary ---
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 Date/Time Encounter Type Encounter Description Reason Provider Source October 22, 2023 11:39 AM TARGETED CASE MANAGEMENT ADMIN PAT ACTIVTIES (MASNONCT) ELIZABETH ELIZABETH E Encounter Template Text not used by [place] Plan of Treatment: Future Appointments (+ 6 months) and Future Tests (+/- 45 days) The Plan of Treatment section includes future care activities for the patient from all [place] [facility]. This section includes future appointments and future orders which are active, pending or scheduled. Future Appointments This section includes appointments that were scheduled to occur 6 months from the date of the Encounter, up to a maximum of 20 appointments. The data comes from all [place] treatment facilities. Appointment Date/Time Appointment Type Appointme nt Facility Name Nov 19, 2023 08:30 AM AMBULATORY - MEDICINE [facility] Nov 28, 2023 08:30 AM AMBULATORY - SUR[facility]ERY [facility] Dec 09, 2023 10:15 AM AMBULATORY - MEDICINE [facility] Dec 26, 2023 09:00 AM [facility] Dec 29, 2023 04:00 PM AMBULATORY - NONE [facility] Jan 12, 2024 03:00 PM AMBULATORY - NONE [facility] Jan 20, 2024 11:20 AM AMBULATORY - N[facility] Feb 19, 2024 11:20 AM AMBULATORY - N[facility] Mar 01, 2024 10:30 AM AMBULATORY - MEDICINE [facility] Mar 11, 2024 11:00 AM AMBULATORY - NONE [facility] Apr 13, 2024 11:20 AM AMBULATORY - NONE [facility] Lab Results: +/- 30 days of the encounter This section includes the Chemistry and Hematology Lab Results on record with [place] for the patient. Radiology Reports and Pathology Reports are provided separately, in subsequent sections. Lab Results This section contains the Chemistry/Hematology Results that were resulted 30 days before or 30 daysafter the date of the Encounter. Date/Time Source Result Type Result - Unit Interpretation Reference Range Specimen Type Comment Nov 19, 2023 09:41 AM [facility] HIV COMBO FOURTH GENERATION (STL) SERUM Speci men Type: SERUM No comment entered. Ordering Provider: SERGO VIRK Report Released Date/Time: Nov 19, 2023 09:14 AM Reporting Lab: [facility] [address] [facility] [address] Performing Lab: [facility] [address] [facility] [address] HIV COMBO FOURTH GENERATION (STL) Nonreactive Nonreactive Nov 19, 2023 09:41 AM [facility] HEP C Ab HCV Ab (STL) SERUM Specimen Type: SE RUM No comment entered. Ordering Provider: SERGO VIRK Report Released Date/Time: Nov 19, 2023 09:14 AM Reporting Lab: [address] [address] Performing Lab: [address] [address] HEP C Ab HCV Ab (L) Nonreactive Nonrea ctive Nov 19, 2023 09:41 AM [facility] CBC BLOOD Specimen Type: BLOOD No comment entered. Ordering Provider: SERGO VIRK Report Released Date/Time: Nov 19, 2023 09:14 AM Reporting Lab: [address] [address] Performing Lab: [address] [address] WBC 4.6 10*3/uL 3.6-11.2 RBC 4.65 10*6/uL [...] 0.00-0. 20 Nov 19, 2023 09:41 AM [facility] COMPREHENSIVE METABOLIC PANEL PLASMA Specimen Type: PLASMA Comment: No hemolysis noted. Ordering Provider: SERGO VIRK Report Released Date/Time: Nov 19, 2023 09:14 AM Reporting Lab: [address] [address] Performing Lab: [address] [address] CREATININE 1.22 mg/dL 0.7-1.3 UREA NITROGEN 13.1 [...] 73.6 >60 Nov 19, 2023 09:41 AM [facility] HGA1C BLOOD Specimen Type: BLOOD No comment entered. Ordering Provider: SERGO VIRK Report Released Date/Time: Nov 19, 2023 09:14 AM Reporting Lab: [facility] [address] [place] [address] Performing Lab: [address] [address] HGA1C 5.6 4.0-6.0 Nov 19, 2023 09:41 AM [facility] LIPID PANEL (STL) PLASMA Specimen Type: PLASM A Comment: No hemolysis noted. Ordering Provider: SERGO VIRK Report Released Date/Time: Nov 19, 2023 09:14 AM Reporting Lab: [address] [address] Performing Lab: [facility] [address] [facility] [address] CHOLESTEROL 184 mg/dL 0-200 TRIGLYCERIDE 103 mg/dL 0-150 CALCULATED LDL 117 mg/dL HDL(New) 46 mg/dL >40 Nov 19, 2023 09:41 AM [facility] VITAMIN D, 25-HYDROXY SERUM Specimen Type: SE RUM No comment entered. Ordering Provider: SERGO VIRK Report Released Date/Time: Nov 19, 2023 09:14 AM Reporting Lab: [facility] [address] [facility] [address] Performing Lab: [address] [address] VITAMIN D, 25-HYDROXY 28.7 ng/mL L 30-96 Nov 19, 2023 09:41 AM [facility] TSH (MA-PB) SERUM Specimen Type: SERUM No comment entered. Ordering Provider: SERGO VIRK Report Released Date/Time: Nov 19, 2023 09:14 AM Reporting Lab: [facility] [address] [address] Performing Lab: [address] [address] TSH 0.730 u[IU]/mL 0.47-5 Advance Directives: All historical and current Section Date Range: From patient's date of to the date document was created. This section includes ALL of a patient's completed or amended [place] Advance and Rescinded Directives. The entries below indicate that a directive exists for the patient, but an actual copy is not included with this document. The data comes from all [place] facilities. Date Advance Directives Provider Source Dec 28, 2021 ADVANCE DIRECTIVE DISCUSSION PHYLLIS GUPTA [facility] Radiology Reports: +/- 30 days of the [...] the Encounter. The data comes from all [place] treatment facilities. Date/Time Radiology Report Provider Source Nov 21, 2023 02:25 PM FOOT,RIGHT,3 VIEWS OR MORE: KALEB JAVED [id number] -1975 M Exm Date: NOV 21, 2023@14:25 Req Phys: SERGO VIRK Loc: [facility] PACT 3 NEW PATIENT ( Img Loc: [facility] RADIOLOGY SUITE Service: Unknown [address] [address] (Case [id number] COMPLETE) FOOT,RIGHT,3 VIEWS OR MORE (RAD Detailed) CPT:45976 Proc Modifiers : RIGHT Reason for Study: Foot pain Clinical History: Report Status: Verified Date Reported: NOV 21, 2023 Date Verified: NOV 21, 2023 Appraisal Analyst E-Sig:/ES/ALEX RAMOS Report: , [id number] INDICATION: Foot pain COMPARISON: None TECHNIQUE: Right and left foot multiple views Impression: There are bilateral plantar heel spurrings. 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 No acute displaced fracture. No significant malalignment. Primary Interpreting Staff: ALEX RAMOS, RADIOLOGIST (Appraisal Analyst) /ALEX LOPEZ [facility] Nov 21, 2023 02:25 PM FOOT,LEFT 3 VIEWS OR MORE: KALEB JAVED [id number] -1975 M Exm Date: NOV 21, 2023@14:25 Req Phys: SERGO VIRK Loc: [facility] PACT 3 NEW PATIENT ( Img Loc: [facility] RADIOLOGY SUITE Service: Unknown [address] [address] (Case [id number] COMPLETE) FOOT,LEFT 3 VIEWS OR MORE (RAD Detailed) CPT:91723 Proc Modifiers : LEFT Reason for Study: Foot pain Clinical History: Report Status: Verified Date Reported: NOV 21, 2023 Date Verified: NOV 21, 2023 Appraisal Analyst E-Sig:/ES/ALEX RAMOS Report: , [id number] INDICATION: Foot pain COMPARISON: None TECHNIQUE: Right and left foot multiple views Impression: There are bilateral plantar heel spurrings. 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 No acute displaced fracture. No significant malalignment. Primary Interpreting Staff: ALEX RAMOS, RADIOLOGIST (Appraisal Analyst) /ALEX LOPEZ [facility] Encounter Notes: All associated encounter notes This section contains the clinical notes associated to the Encounter. Date/Time Encounter Note(s) Provider Source October 22, 2023 11:39 AM PRIMARY CARE NOTE: LOCAL TITLE: [facility] TRAVELING PCMM NOTE [facility] STANDARD TITLE: PRIMARY CARE NOTE DATE OF NOTE: OCTOBER 22, 2023@11:39 ENTRY DATE: OCTOBER 22, 2023@11:39:13 AUTHOR: ELIZABETH ELIZABETH EXP COSIGNER: URGENCY: STATUS: COMPLETED Traveling/Relocating [place] Care Coordination Patient-Centered Management Module (PCMM) New patient PCMM received and approved for permanent relocation of care to: [facility] Per chart review will establish care with a PCP on: 11/19/23 [facility] Please note the alternate [place] is responsible for care until care is established at the receiving [facility]. /rita/ ELIZABETH ELIZABETH REGISTERED NURSE, HOME TELEHEALTH COORDINATOR Signed: 10/22/2023 11:39 ELIZABETH ELIZABETH [facility]
--- OUTSIDE RECORDS SUMMARY | 2024-09-24 00:58 | XMS_ITS | Encounter Summary ---
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 Date/Time Primary/Secondary Diagnosis Diagnosis Name Provider Source May 11, 2024 11:46 AM PRIMARY Low back pain, unspecified TERRANCE LIND Miguelina ISREAL [facility] May 11, 2024 11:46 AM SECONDARY Cervicalgia TERRANCE LIND [facility] May 11, 2024 11:46 AM SECONDARY Myalgia, other site TERRANCE LIND [facility] Plan of Treatment: Future Appointments (+ 6 months) and Future Tests (+/- 45 days) The Plan of Treatment section includes future care activities for the patient from all [place] [facility]. This section includes future appointments and future orders which are active, pending or scheduled. Future Appointments This section includes appointments that were scheduled to occur 6 months from the date of the Encounter, up to a maximum of 20 appointments. The data comes from all [place] treatment facilities. Appointment Date/Time Appointment Type Appointme nt Facility Name May 25, 2024 08:00 AM AMBULATORY - NONE [facility] Jun 03, 2024 01:30 PM AMBULATORY - NONE [facility] Jun 14, 2024 06:30 PM AMBULATORY - NONE [facility] Jun 21, 2024 06:30 PM AMBULATORY - NONE [facility] Jul 05, 2024 09:00 AM AMBULATORY - NONE [facility] Jul 05, 2024 06:30 PM AMBULATORY - NONE [facility] Jul 12, 2024 06:30 PM AMBULATORY - NONE [facility] Jul 16, 2024 07:30 AM AMBULATORY - NONE [facility] Jul 23, 2024 07:30 AM AMBULATORY - NONE [facility] Jul 30, 2024 07:30 AM AMBULATORY - NONE [facility] Aug 04, 2024 07:30 AM AMBULATORY - SURGERY [facility] Jose Daniel MCDOWELLIS [facility] Sep 10, 2024 07:30 AM [facility] Sep 13, 2024 02:00 PM AMBULATORY - NONE [facility] FERREIRA [facility] Sep 17, 2024 07:30 AM AMBULATORY - NONE [facility] Sep 20, 2024 02:00 PM AMBULATORY - NONE [facility] FERREIRA [facility] Sep 24, 2024 07:30 AM AMBULATORY - NONE [facility] Sep 27, 2024 02:00 PM AMBULATORY - NONE [facility] Sep 27, 2024 03:00 PM AMBULATORY - SURGERY [facility] Daniel FERREIRA [facility] Oct 01, 2024 07:30 AM AMBULATORY - NONE [facility] FERREIRA [facility] Oct 04, 2024 02:00 PM AMBULATORY - NONE [facility] Social History: Smoking Status (Most current) and Tobacco Use (All prior to encounter date) This section includes the most current, and the historical, smoking and tobacco- related health factors from the [place] facility where the Encounter took place. Current Smoking Status This section includes the most current smoking, or tobacco-related health factor, from the [place] facility where the Encounter took place. Date/Time Current Smoking Status Comment Facil Nov 19, 2023 08:30 AM VA-TOBACCO NEVER USED Miguelina [facility] Advance Directives: All historical and current Section Date Range: From patient's date of to the date document was created. This section includes ALL of a patient's completed or amended [place] Advance and Rescinded Directives. The entries below indicate that a directive exists for the patient, but an actual copy is not included with this document. The data comes from all [place] facilities. Date Advance Directives Provider Source Dec 28, 2021 ADVANCE DIRECTIVE DISCUSSION PHYLLIS GUPTA [facility] Encounter Notes: All associated encounter notes This section contains the clinical notes associated to the Encounter. Date/Time Encounter Note(s) Provider Source May 11, 2024 09:16 AM CHIROPRACTIC NOTE: LOCAL TITLE: CHIROPRACTIC [facility] F/U [facility] STANDARD TITLE: CHIROPRACTIC NOTE DATE OF NOTE: MAY 11, 2024@09:16 ENTRY DATE: MAY 11, 2024@09:16:29 AUTHOR: KNIEPER,TERRANCE J EXP COSIGNER: URGENCY: STATUS: COMPLETED SUBJECTIVE: [place] presents to follow up chiropractic visit with back and neck pain. [place] rates their pain as a 2/10 today. [place] notes stretching helps with their pain. [place] states their back pain has gotten better and finds benefit in chiropractic treatment and their home care plan. [place] denies numbness, tingling and muscle weakness in their arms and legs since their last chiropractic visit. [place] denies injuries or falls since their last visit. agrees to proceed with chiropractic treatment today. GOALS: Improve mobility, decrease pain when [...] times daily RTC:4-6 wks /es/ TERRANCE LIND [facility] Chiropractic Physician Signed: 05/11/2024 12:15 TERRANCE LIND [facility]
--- OUTSIDE RECORDS SUMMARY | 2024-09-24 00:58 | XMS_ITS | Encounter Summary ---
Author Name [facility] Organization [facility] ([place]) Address [address] [place] [address] Care Team Providers Care Software Quality Manager Name Role Phone WALTER EMILIO Primary [...] RE DODA WNR Jan 14, 2024 DODA [id number] [phone] Julianna JAVED PATIENT [facility] 2024 PRIME RETIR ED Jun 09, 2024 PRIME RETIRED [id number] [phone] Julianna JAVED PATIENT [facility] 2024 PRIME WNR Jun 09, 2024 PRIME [id number] [phone] Julianna JAVED PATIENT Selected Encounter This section includes the information on record at [place] for the Encounter. Date/Time Encounter Type Encounter Description Reason Provider Source Mar 11, 2024 11:00 AM MANUAL THERAPY 1/> [facility] REWINDER ICD-10-CM M54.2 Cervicalgia MARCELLA LIND IHE Encounter Template Text not used by [place] Assessments - Encounter Diagnoses This section includes the primary and secondary diagnoses documented for the Encounter. Date/Time Primary/Secondary Diagnosis Diagnosis Name Provider Source Mar 11, 2024 11:18 AM PRIMARY Cervicalgia TERRANCE LIND [facility] Mar 11, 2024 11:18 AM SECONDARY Low back pain, unspecified TERRANCE LIND [facility] Mar 11, 2024 11:18 AM SECONDARY Myalgia, other site TERRANCE LIND [facility] Plan of Treatment: Future Appointments (+ 6 months) and Future Tests (+/- 45 days) The Plan of Treatment section includes future care activities for the patient from all [place] [facility]. This section includes future appointments and future orders which are active, pending or scheduled. Future Appointments This section includes appointments that were scheduled to occur 6 months from the date of the Encounter, up to a maximum of 20 appointments. The data comes from all [place] treatment facilities. Appointment Date/Time Appointment Type Appointme nt Facility Name Apr 13, 2024 11:20 AM AMBULATORY - NONE [facility] May 11, 2024 11:40 AM AMBULATORY - NONE [facility] May 25, 2024 08:00 AM AMBULATORY - NONE [facility] Jun 03, 2024 01:30 PM AMBULATORY [facility] NONE [facility] Jun 14, 2024 06:30 PM AMBULATORY - NONE [facility] Jun 21, 2024 06:30 PM AMBULATORY - N[facility] Jul 05, 2024 09:00 AM AMBULATORY - NONE [facility] Jul 05, 2024 06:30 PM AMBULATORY - NONE [facility] Jul 12, 2024 06:30 PM AMBULATORY - NONE [facility] Jul 16, 2024 07:30 AM AMBULATORY - NONE [facility] Jul 23, 2024 07:30 AM AMBULATORY - N[facility] Jul 30, 2024 07:30 AM AMBULATORY [facility] Aug 04, 2024 07:30 AM AMBULATORY - SURGERY [facility] Jose Daniel [facility] Social History: Smoking Status (Most current) and Tobacco Use (All prior to encounter date) This section includes the most current, and the historical, smoking and tobacco- related health factors from the [place] facility where the Encounter took place. Current Smoking Status This section includes the most current smoking, or tobacco-related health factor, from the [place] facility where the Encounter took place. Date/Time Current Smoking Status Comment Enid daniels Nov 19, 2023 08:30 AM VA-TOBACCO NEVER USED [facility] Advance Directives: All historical and current Section Date Range: From patient's date of to the date document was created. This section includes ALL of a patient's completed or amended [place] Advance and Rescinded Directives. The entries below indicate that a directive exists for the patient, but an actual copy is not included with this document. The data comes from all [place] facilities. Date Advance Directives Provider Source Dec 28, 2021 ADVANCE DIRECTIVE DISCUSSION PHYLLIS GUPTA [facility] Encounter Notes: All associated encounter notes This section contains the clinical notes associated to the Encounter. Date/Time Encounter Note(s) Provider Source Mar 11, 2024 07:45 AM CHIROPRACTIC NOTE: LOCAL TITLE: CHIROPRACTIC [facility] F/[facility] STANDARD TITLE: CHIROPRACTIC NOTE DATE OF NOTE: MAR 11, 2024@07:45 ENTRY DATE: MAR 11, 2024@07:45:26 AUTHOR: TERRANCE LIND COSIGNER: URGENCY: STATUS: COMPLETED SUBJECTIVE: Patient presents today for a follow up visit of back pain. 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 Also notes, has not been having as many days sitting for long periods of time at work. Has not been biking as much lately d/t weather. Denies radicular symptoms in upper extremity. He notes low back today is doing quite well. Today rates cervical complaint 2/10, most noticeable on the left CT junction. GOALS: Improve mobility, decrease pain when transitioning [...] no difficulty OBJECTIVE/PALPATION: Taut and tender cervical paraspinals, upper traps and levator scapula. Taut lumbar paraspinals RESTRICTIONS: CT junction, thoracic ASSESSMENT: Patient is a pleasant 49-year-old male [...] exam. The benefits, risks and alternatives to health care analyst were discussed with the patient, along with an opportunity to ask questions. Patient then gave an informed consent to treatment. Plan of care will consist of 4-6 visits consisting of chiropractic manipulation with an incremental increase in home exercise depending on the patients response. The patient agrees to this plan. Treatment consisted of prone manipulation CT junction, prone manipulation thoracic spine. Manual therapy consisting of table assisted pin and stretch thoracolumbar paraspinals and quadratus lumborum. Cross friction massage rhomboids, upper traps and levator scapula. Manual therapy 9 minutes. The patient reported feeling much better following their treatment. Treatment rendered without incident. HOME CARE: Kneeling thoracic mobility 5 reps 3-4 times daily, cervical retractions 5 reps 3-4 times daily RTC:4-6 wks /es/ TERRANCE LIND [facility] Chiropractic Physician Signed: 03/11/2024 11:18 TERRANCE LIND [facility]
--- OUTSIDE RECORDS SUMMARY | 2024-09-24 00:58 | XMS_ITS | Data Portability ---
Author Organization [place] - [facility] [place], , Main Office - [facility] Address [address] [place] [id number] Care Team Providers Care Counselor Education Professor Name Role Phone [facility] Primary Ca re Provider Assessment Encounter Date Assessment Date Assessment LastModified by Organization Details LastModified Time 12/03/2022 12/03/2022 Right small finger PIP joint contracture. I had a lengthy discussion with him concerning his diagnosis and available treatment options. We discussed the fact that his injury has healed and essentially at this point in time he needs to pursue aggressive occupational therapy. He is welcome to follow up on an as-needed basis. This encounter was completed with the assistance of voice recognition software. Interpretive errors may exist that were not detected at the time of review and sign off and may be subject to subsequent amendment. [email or web address] Not available 12/03/2022 12:54:19 Plan of Treatment Reminders Order Date Submit Date Provider Last Modified By Organization Details Last Modified Time Details Appointments None recorded. Lab None recorded. Referral occupationa l therapist referral - Eval and treat; aggressive rom 2022 023 [email or web address] [facility], [address] [place] [address], [id number], 10:45:07 Procedures None recorded. Surgeries None recorded. Imaging XR, finger(s), 2 or more view 2022 023 [email or web address] [facility], [address] [place] [address], [id number], 3 10:11:20 Medication Orders None recorded. Patient TargetsNo targets recorded. Patient InstructionsNo instructions recorded. Reason for Referral Occupational Therapist Refer [facility] for Contracture of joint of finger Eval and treat; aggressive rom Referring Physician: Anastacio Evans, Orthopedic Surgery, Encounter Date: 12/03/2022 Results Created Date Observation Date Name Description Value Unit Range Abnormal Flag Note LastModifiedBy Organization Detail LastModifiedTime 12/04/19 23 XR, finge r(s), 2 or more view No observ ation record ed. [email or web address], [address], 12/03/2022 12:54:27 Result Notes None recorded. Procedures Surgical History Date Name Laterality Status Provider Name and Address Organization Details Recorded Time Appendectomy completed Venita Underwood [facility] 12/03/2022 09:19:16 Imaging Results Imaging Date Name Status LastModified by Organiz ation Details LastModified Time 12/03/2022 XR, finger(s), 2 or more view completed [address], [address], 12/03/2022 12:54:27 Procedure Notes None recorded. Medical Equipment None Reported. Allergies No known drug allergies Medications Name Sig Start Date Stop Date Status Note LastModified by Organization Details LastModified Time rabeprazole 20 mg tablet,delaye d release active Not Available Not Available No t Available Detrol LA 4 mg capsule,exten ded release 2022 completed Not Available Not Available Not Available ibuprofen 400 mg tablet active Not Available Not Available No t Available loratadine 10 mg tablet active Not Available Not Available No t Available Gemtesa 75 mg tablet active Not Available Not Available Not Available Vitals Date Recorded Body weight Body mass index (BMI) Body height Body temperature Heart rate Systolic blood pressure Diastolic blood pressure Provider Name and Address Organization Details Last Updated DateTime 3 [address]83.9 1 g 27.3 kg/m2 172.72 cm 98.2 [degF] 54 /min 130 mm[Hg] 82 mm[Hg] Venita silvestre [facility] 09:21:49 Social History Question Answer Notes LastModified by Organizat ion Details LastModified Time Tobacco Smoking Status Never Smoker JUAN RAMON [place] - [facility], 12/03/2022 09:18:06 Do You Have An Advance Directive? Yes Keyla Diana () .......... .......... .[email or web address] Information not available 12/03/2022 What Is Your Level Of Alcohol Consumption? Occasional Information not available 12/03/2022 How Many Years Have You Consumed Alcohol? 20 Information not available 12/03/2022 Is Blood Transfusion Acceptable In An Emergency? Yes Information not available 12/03/2022 What Is Your Level Of Caffeine Consumption? Moderate Information not available 12/03/2022 In The 14 Days Before Symptom Onset, Have You Had Close Contact With A Laboratory-confir med COVID-19 While That Case Was Ill? No Information not available 12/03/2022 In The 14 Days Before Symptom Onset, Have You Had Close Contact With A Person Who Is Under Investigation For COVID-19 While That Person Was Ill? No Information not available 12/03/2022 Have You Been To An Area Known To Be High Risk For COVID-19? No Information not available 12/03/2022 Are You Currently Employed? Yes Information not available 12/03/2022 Who Is Your Employer? 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 3-4 Times Per Week Information not available 12/03/2022 Which Of Your Hands Is Dominant? Left Information not available 12/03/2022 What Is Your Relationship Status? Information not available 12/03/2022 Do You Use Any Illicit Or Recreational Drugs? No Information not available 12/03/2022 Do You Or Have You Ever Used Any Other Forms Of Tobacco Or Nicotine? No Information not available 12/03/2022 Sex: Unknown Functional Status Question Answer Note LastModified by Organization D etails LastModified Time What is your exercise level? Moderate [facility] Information not available 12/03/2022 Mental Status None recorded. Family History Relationship Description Onset Age of this Age Resolved Age Notes LastModified by Organization Details LastModified Time Mother Malignant neoplastic disease [facility] Not available 12/03/2022 09:17:17 Notes:.....................j la12/03/2022 Medical History Condition Response Pancreatitis N HEME - Anemia N Gout N Hyperthyroidism N Rheumatoid arthritis N Osteoarthrosis N Irritable bowel syndrome N HEENT - Wears corrective lenses Y Depression N COPD N Pneumonia N History of head and neck tumor N Peptic ulcer disease N NEURO - Cerebral palsy N Skin infection N Active aids N Mitral valve prolapse N Renal failure N HIV positive N GI - GERD N Joint injury N Hypoparathyroidism N Hypercholesterolemia N MS - Fracture N Fibromyalgia N Cerebrovascular accident N PSYCHE - Claustrophobia N Neuromuscular disease N Poliomyelitis / post polio N ENDOCRINE - Obesity N Hearing impairment N Dysvascular amputation LE N Other diagnosis Y Anxiety disorder N Deformity N CHEST - Sleep apnea N Crohn's disease N Pulmonary embolism N Chronic venous stasis disease N Psychosis N Coagulopathy N No Past Medical History N Cardiac valvular disease N Asthma N Blood clotting disorder N Are you under pain mgmt treatment N Fragility fracture N Vertigo N Hepatitis N Neuropathy N Coronary artery disease N Pressure sore N Diabetes Type II (NIDDM) N Skin ulceration N Bipolar disorder N Legally blind N Glaucoma N Hypothyroidism N Sinusitis / sinus infection N Pacemaker N Peripheral vascular disease N Cystic fibrosis N Cholecystitis N Sickle cell N VASCULAR - Deep venous thrombosis N Osteomyelitis N SKIN - Rash N INFECTIOUS - Current active infection N Diabetic Monitor N Previous myocadial infarction N Heart murmur N Itp / ttp N Congestive heart failure N Lupus Arthritis N Skin bruising N HEART - Arrhythmia N Diabetes Type I (IDDM) N Chemically anticoagulated N Dental caries / gingivitis N Fracture non-union N Dysvascular gangrene N - Cystitis N Renal dialysis N Diverticulitis N Dementia N Ulcerative colitis N Seizure disorder N MISC - Cancer N Organ transplant N Hypertension N Osteoporosis N Past Encounters Encounter ID Performer Location Encounter Start Date Encounter Closed Date Diagnosis/Indication Diagnosis SNOMED-CT Code Diagnosis ICD10 Code Diagnosis Note [id number] Anastacio Evans DO Main Office - [facility] [address] [place] [address] 12/03/2022 09:08:40 12/03/2022 10:07:16 Pain in finger of right hand 5641206209 68073 M79.644 SF Contractur e of joint of finger 784367956 M24.541 SF Health Concerns Section Related Observation LastModified by Organization Detai ls LastModified Time None Recorded Concern Status LastModified by Organization Details LastModified Time None Recorded Advance Directives Directive Y: Keyla Diana () ..... ................jla12/03/2022 Payers Encounter Date Sequence Insurance Name Policy Number Policy [place] Covered Member ID [place] Member ID Guarantor Name 12/03/2022 1 [employer] - DOS PRIOR TO 2024 - [employer] - PRIME () Lex Diana [id number] Lex Diana Notes Date Note Type Note Provider Name and Address Organization Details Recorded Time 12/03/2022 text/html 4 W'sReported bypatient.What: right small finger pain How:fell while mountain biking When:3 months 47yo M seen today for right small finger pain. Anastacio Evans DO [address] [place], [address], [facility] - [facility], 12/03/2022 14:05:02
[2024-09-24] MEDS: FLUORESCEIN SOD 1 MG/STRIP (05:28)
[2024-09-24] MEDS: TETRACAINE HCL 0.5% OPHTH SOLN 4 ML BTL 1 DROP (05:28)
[2024-09-24] MEDS: DACRIOSE EYE IRRIGATION 118 ML BOTTLE (05:28)
--- NOTE | 2024-09-25 14:07 | ED.EYEPROB ---
HPI - Eye Problem General Chief complaint: Eye Problems Stated complaint: eye problem Time Seen by Provider: 09/24/24 00:03 Source: patient Mode of arrival: ambulatory Limitations: no limitations History of Present Illness HPI Narrative: Patient is a 49 y/o male who presents to the ED with c/o L eye discomfort. Patient reports he was working outside today and felt a foreign body blow in to his left eye. Complains of foreign body sensation to his left eye. He attempted to flush his eye, but denied improvement. Denies any lower a vision, vision loss, double vision. He wears glasses, no contact use. Denies severe eye pain or headache. Related Data Allergies Allergy/AdvReac Type Severity Reaction Status Date / Time No Known Allergies Allergy Verified 09/23/24 20:29 Review of Systems Review of Systems: All systems reviewed & are unremarkable except as noted in HPI. All systems reviewed & are unremarkable except as noted in HPI and below Exam Narrative: GENERAL: Well appearing, well-nourished, non-toxic, in no acute distress. HEAD: Normocephalic, atraumatic. EYES: PERRL/EOMI, R conjunctiva clear. L conjunctiva slightly injected. Small amount of serous drainage. No purulent drainage. No chemosis or proptosis. No obvious FB identified. No periorbital swelling or erythema. RESPIRATORY: Airway patent, respirations nonlabored. CARDIOVASCULAR: Regular rate and rhythm MUSCULOSKELETAL: Moves all extremities. No gross deformities. SKIN: Warm, dry, normal color. NEURO: A&O X3. Speech clear. PSYCHIATRIC: Appropriate mood and affect. Normal interaction. Course Vital Signs Vital signs: Vital Signs Temperature 97.0 F L 09/23/24 20:32 Pulse Rate 68 09/23/24 20:32 Respiratory Rate 17 09/23/24 20:32 Blood Pressure 152/82 H 09/23/24 20:32 Pulse Oximetry 98 09/23/24 20:32 Oxygen Delivery Room Air 09/23/24 20:32 Temperature 97.6 F 09/24/24 02:34 Pulse Rate 76 09/24/24 02:34 Respiratory Rate 16 09/24/24 02:34 Blood Pressure 117/76 09/24/24 02:34 Pulse Oximetry 98 09/24/24 02:34 Oxygen Delivery Room Air 09/23/24 20:32 MDM - Eye Problem MDM Narrative Medical decision making narrative: Possible foreign body to left eye. Visual acuity intact. Patient denying any vision changes or vision loss. No obvious foreign body identified with lid eversion or external inspection. Fluorescein staining with Wood's lamp examination was performed and showed a small conjunctival abrasion to the 9:00 a.m. region outside of cornea. No corneal abrasion. Intra-ocular pressures were evaluated and normal, 14. Patient will be started on ofloxacin eyedrops, advised to follow-up with Ophthalmology for further evaluation if needed. Given return precautions. Discharged in stable condition. Medical Records Attestation: I reviewed the patient's medical records. Discharge Plan Discharge Clinical Impression: Conjunctival abrasion Qualifiers: Encounter type: initial encounter Laterality: left Qualified Code(s): S05.02XA - Injury of conjunctiva and corneal abrasion without foreign body, left eye, initial encounter Patient Disposition: Home Condition: Stable Instructions: Antibiotic Form Patient Language: Yoruba Follow-up/Referrals: PHYSICIAN,HISTORICAL SOCIETY DIRECTOR [Primary Care Provider] -
== END 2024-09-24 02:35 | disposition home or self-care (01) ==
PROVIDERS: Emergency Provider Physician Assistant
DX: S05.02XA Injury of conjunctiva and corneal abrasion without foreign body, left eye, initial encounter (principal); W20.8XXA Other cause of strike by thrown, projected or falling object, initial encounter
CPT/HCPCS: 99283; A9270